=== PATIENT | male | born 1935 | race Caucasian/White ===

== ENCOUNTER 2016-05-15 17:19 | Emergency (ER) ==
--- NOTE | 2016-05-15 18:44 | PROVIDER DOCUMENTATION ---
HPI-General Adult - General Chief Complaint: Fall Stated Complaint: fall/generalized pain Time Seen by Provider: 05/15/16 17:40 Source: family Allergies/Adverse Reactions: Patient Allergies Allergy/AdvReac Type Severity Reaction Status Date / Time No Known Allergies Allergy Verified 02/08/16 18:08 Home Medications: Home Medication List Medication Instructions Recorded Confirmed Last Taken Type Amlodipine [Norvasc] 5 mg PO DAILY #0 tablet 01/12/13 05/15/16 05/15/16 08:00 Rx Aspirin 81 mg PO DAILY 06/03/15 05/15/16 05/15/16 08:00 History Donepezil [Aricept] 5 mg PO QHS 05/15/16 05/15/16 05/14/16 21:00 History Glimepiride [Amaryl] 2 mg PO DAILY 05/15/16 05/15/16 05/15/16 08:00 History Melatonin 3 mg PO DAILY 05/15/16 05/15/16 05/14/16 20:00 History - History of Present Illness -Gen Adult Nature of Presenting Problems: Fall at 11 am today. 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 Caught by , so slid down onto bottom against the couch. no obvious head hit. No LOC. Initially able to ambulate but now complains of pain diffusely and having difficulty ambulating independently Location of Pain/Injury: reports: generalized Quality of Pain: reports: aching Onset/Duration: reports: 4-6 hours ago Modifying Factors: improves with: movement (increases pain) Associated Symptoms: reports: denies symptoms Review of Systems - Adult - REVIEW OF SYSTEMS - ADULT Constitutional: reports: no symptoms reported Eyes: reports: no symptoms reported Ears, Nose, Mouth & Throat: reports: no symptoms reported Cardiovascular: reports: no symptoms reported Respiratory: reports: no symptoms reported Gastrointestinal: reports: no symptoms reported Genitourinary: reports: no symptoms reported Musculoskeletal: reports: back pain, muscle aches (pelvic pain), other Neurological: reports: other (dementia. oriented x1, at baseline mental status per granddaughter) Psychiatric: reports: other (dementia) Past History - Adult - PAST MEDICAL HISTORY-ADULT Review of Records: reports: Old Records Reviewed, Nursing Assessment Review, Medications Reviewed Major Childhood Illnesses: reports: denies history Cardiovascular: reports: HTN, hyperlipidemia, other (carotid vascular disease) Respiratory: reports: denies history Gastrointestinal: reports: denies history Obstetrical/Gynecological: reports: denies history Genitourinary: reports: denies history Musculoskeletal: reports: denies history Neurological: reports: denies history Endocrine/Immune: reports: Diabetes Diabetes Type: Type 2 Other Conditions: reports: denies history - PRIOR SURGERIES/PROCEDURES Surgical/Procedure History: reports: orthopedic (extremity) (wrist), back/neck, other (eye) - IMMUNIZATION STATUS Childhood Immunizations: See Nurse Assessment Flu Vaccine: See Nurse Assessment - FAMILY HISTORY Family History: reviewed, not pertinent Physical Exam-General - PHYSICAL EXAM-ADULT Initial Vital Signs Reviewed: Yes - CONSTITUTIONAL General Appearance: alert, no apparent distress - EYES Eyes: PERRL/EOMI - HEAD, EARS, NOSE, MOUTH & THROAT HENMT: normal ENT inspection, TMs normal, pharynx normal - NECK Neck: non-tender - RESPIRATORY Respiratory: chest non-tender, lungs clear, normal breath sounds - CARDIOVASCULAR Cardiovascular: normal peripheral pulses, regular rate, rhythm, no edema, no gallop, no JVD, no murmur - GASTROINTESTINAL (ABDOMEN) Abdominal Exam: normal bowel sounds, non tender, soft, no organomegaly - LYMPHATIC Lymphatic: no adenopathy - MUSCULOSKELETAL Back Exam: normal inspection, no CVA tenderness, no vertebral tenderness Extremity: normal range of motion, non-tender, normal inspection, no pedal edema , pelvis stable - SKIN Integumentary: normal color, normal turgor, warm/dry - NEUROLOGIC Neurologic: grossly normal, no motor/sensory deficits, other (able to stand with assist) - PSYCHIATRIC Psych/Mental Status: disoriented x 3, other (confused, does not remeber fall) Progress - PLAN OF CARE/RESULTS Progress/Plan/Lab Results: Orders Category Date Time Status Blood Glucose Finger Stick [FSBS/Accucheck Result] NOW Care 05/15/16 18:45 Active CHEST-1 VIEW [RAD] Stat Exams 05/15/16 17:55 Taken HEAD/C-SPINE W/O CONTRAST [CT] Stat Exams 05/15/16 17:55 Taken HIP W/PELVIS BILAT 2 VIEWS [RAD] Stat Exams 05/15/16 17:55 Taken LUMBAR SPINE 2-VIEWS [RAD] Stat Exams 05/15/16 19:32 Ordered Hydrocodone/APAP 5 mg/325 mg [[place]-5] Med 05/15/16 19:56 Discontinued 1 each PO NOW ONE Ketorolac [Toradol] Med 05/15/16 19:57 Stop Req 15 mg IV NOW ONE Ketorolac [Toradol] Med 05/15/16 20:02 Discontinued 30 mg IM NOW ONE Vital Signs Temp Pulse Resp BP Pulse Ox 05/15/16 19:38 97.0 F L 88 14 157/65 95 05/15/16 17:24 98.1 F 86 16 177/86 98 No Known Allergies Allergy (Verified 02/08/16 18:08) Amlodipine [Norvasc] 5 mg PO DAILY #0 tablet 01/12/13 Aspirin 81 mg PO DAILY 06/03/15 Donepezil [Aricept] 5 mg PO QHS 05/15/16 Glimepiride [Amaryl] 2 mg PO DAILY 05/15/16 Melatonin 3 mg PO DAILY 05/15/16 - XRAY 1 XRAY Study: Chest XRAY Interpretation: no fracture 2 XRAY Study: Pelvis, Hip (no fracture) 3 XRAY Study: Lumbar Spine (djd, , cannot completely r/o subtle compression fx but doubt) - CT/MRI 1 CT Study: Cervical Spine (DJD, no fracture, no intracranial acute process), Head Departure - Departure Time of Disposition Order: 20:07 DIAGNOSIS: Muscle strain, Low back strain Disposition: HOME 01 Certified Medical Emergency: Emergent Condition: Stable Additional Instructions: Use [place] that patient has or plain tylenol for discomfort. Standing and walking only with assistance until better . Try warm pack or ice to help discomfort. Follow up with your regular doctor if symptoms persist ED Follow Up Instructions: You have been treated by a care provider in the Emergency Department. These instructions are being provided to you so you can have an understanding of how to care for yourself upon discharge. Upon discharge from the Emergency Department, you are responsible for making arrangements for follow-up care by a physician of your choice. Take all prescribed medications as directed. Return to the Emergency Department immediately for any new or worsening symptoms. You may call the Physician Referral phone number at [phone] to obtain a list of Physicians who are taking new patients. Referrals: Jeremy Huertas MD [Primary Care Provider] -
[2016-05-15] MEDS ORDERED: NORCO-5 PO ONE (19:56)
[2016-05-15] MEDS ORDERED: TORADOL IV ONE (19:57)
[2016-05-15] MEDS ORDERED: TORADOL IM ONE (20:02)
--- NOTE | 2016-05-15 20:56 | Diag Imaging Result Document ---
PROCEDURE NAME: HEAD/C-SPINE W/O CONTRAST - 05/15/2016 CT HEAD AND C-SPINE WITHOUT CONTRAST.: COMPARISON: CT head dated 01/11/2013. FINDINGS: HEAD: There is patchy low attenuation in the periventricular and subcortical white matter suggesting at least moderate microangiopathy that appears to be somewhat worse than the previous study. There is also mild focal encephalomalacia involving the left parietal lobe near the cranial vault posteriorly that was not present previously. However, there is no definite acute infarct given the limited sensitivity of CT versus MRI. There is no discrete intracranial mass, mass effect, or intracranial hemorrhage. There is chronic appearing sphenoid and left maxillary sinus mucosal disease. Surrounding soft tissues are grossly unremarkable, otherwise. Calvaria is intact. C-SPINE: There has been prior anterior cervical fusion at C5-6. There is extensive facet degenerative arthropathy at multiple cervical levels. There is somewhat milder degenerative disk disease at multiple levels. This is causing some degree of central canal and neural foraminal narrowing at multiple levels that appears chronic. There is no evidence of fracture, subluxation, or intrinsic osseous lesion, otherwise. There are emphysematous changes at the lung apices as well as scarring. Surrounding soft tissues are essentially unremarkable, otherwise. IMPRESSION: 1. Chronic appearing intracranial changes as described but no evidence of acute intracranial pathology. 2. Extensive facet degenerative arthropathy and somewhat milder acute degenerative disk disease as described but no evidence of fracture or other definite acute C-spine injury. [facility]
[2016-05-15 21:35] VITALS: BP 171/72
--- NOTE | 2016-05-15 22:35 | Diag Imaging Result Document ---
PROCEDURE NAME: CHEST-1 VIEW - 05/15/2016 SINGLE FRONTAL RADIOGRAPH OF THE CHEST: COMPARISON: 08/17/2014. FINDINGS: There is minimal chronic-appearing interstitial thickening bilaterally at the periphery of the lungs that is stable. The lungs are clear otherwise. There is no definite pleural fluid collection. Cardiac silhouette and central vasculature are unremarkable. There is no definite pneumothorax. IMPRESSION: Stable chest with no definite acute pathology.
--- NOTE | 2016-05-15 22:54 | Diag Imaging Result Document ---
PROCEDURE NAME: LUMBAR SPINE 2-VIEWS - 05/15/2016 PLAIN RADIOGRAPHS LUMBAR SPINE 2 VIEWS: COMPARISON: None available. FINDINGS: There is extensive multilevel degenerative disk disease with endplate marginal osteophyte formation. There is loss of disk space height at L4-5 and L5-S1. There is no evidence of fracture, subluxation, or intrinsic osseous lesion, otherwise. Surrounding soft tissues are grossly unremarkable. IMPRESSION: Multilevel degenerative change. No definite acute pathology.
--- NOTE | 2016-05-15 22:58 | Diag Imaging Result Document ---
PROCEDURE NAME: HIP W/PELVIS BILAT 2 VIEWS - 05/15/2016 PLAIN RADIOGRAPH OF THE PELVIS AND BILATERAL HIPS FOUR VIEWS: COMPARISON: 02/08/2016. FINDINGS: There are stable degenerative changes at both acetabular roofs and stable lumbar spine degenerative changes. There is no definite fracture, dislocation, or intrinsic osseous lesion, otherwise. IMPRESSION: Stable degenerative changes. No definite acute osseous abnormality.
== END 2016-05-15 22:00 | disposition home or self-care (01) ==
LOC: EDBD → ED 17:19
DX: S39.012A Strain of muscle, fascia and tendon of lower back, initial encounter (principal); M54.9 Dorsalgia, unspecified; M79.1 Myalgia; R10.2 Pelvic and perineal pain; R41.0 Disorientation, unspecified; M50.30 Other cervical disc degeneration, unspecified cervical region; I10 Essential (primary) hypertension; E78.5 Hyperlipidemia, unspecified; Z79.899 Other long term (current) drug therapy; E11.9 Type 2 diabetes mellitus without complications; F03.90 Unspecified dementia, unspecified severity, without behavioral disturbance, psychotic disturbance, mood disturbance, and anxiety; Z79.82 Long term (current) use of aspirin; W18.39XA Other fall on same level, initial encounter
CPT/HCPCS: 70450; 71010; 72100; 72125; 73521; 82948; J1885

== ENCOUNTER 2018-06-27 06:43 | Inpatient (IN) ==
[2018-06-27] MEDS ORDERED: ZOFRAN ONE (07:19)
[2018-06-27] MEDS ORDERED: DECADRON ONE (07:19)
[2018-06-27] MEDS ORDERED: DIPRIVAN 1% ONE (07:19)
[2018-06-27] MEDS ORDERED: XYLOCAINE-MPF 2% ONE (07:22)
[2018-06-27] MEDS ORDERED: KEFZOL 1 GM/D5W 1 GM/50 ML IVPB ONE (07:24)
[2018-06-27] MEDS ORDERED: LR 1,000 ML ONE (07:24)
[2018-06-27] MEDS ORDERED: LABETALOL IV PRN (07:55)
[2018-06-27] MEDS ORDERED: FENTANYL ONE (08:41)
[2018-06-27] MEDS ORDERED: NS 1,000 ML ONE (09:34)
--- NOTE | 2018-06-27 09:34 | OPERATIVE NOTE ---
PROCEDURE DATE: 06/27/2018 PROCEDURE PERFORMED: Right transmetatarsal amputation. SURGEON: Carlos A Carvalho MD. DANCE ARTIST: RUTH Pena PREOPERATIVE DIAGNOSIS: Gangrene of the toes of the right foot. POSTOPERATIVE DIAGNOSIS: Gangrene of the toes of the right foot. DESCRIPTION OF PROCEDURE: After satisfactory general anesthesia was achieved, the right foot was prepped and draped in a sterile fashion. We made a [place] nikos on the forefoot. We carried our incision straight through the skin through the subcutaneous tissue through the tendinous tissue all the way to the metatarsals. After raising the periosteum on the metatarsals, I then used the oscillating saw to transect each metatarsal. We divided the soft tissue and handed off the toes. There was pulsatile bleeding. One of the digital vessels was clamped, and suture ligated with a 3-0 Polysorb suture ligature. The tendons that were exposed were pulled and transected more proximally. We then copiously irrigated the wound. Hemostasis was satisfactory. The tissue appeared to fold over nicely, and the skin would approximate without undue tension. We then used 2-0 nylon simple stitches to approximate the major portion of the flaps, and we then used 4-0 nylon in between them to fine tune the skin approximation. Xeroform, sterile 4 x 4s, and a Kerlix was applied. He tolerated it well. He was sent to the recovery room in satisfactory condition. cc: Carlos A Carvalho MD
[2018-06-27] MEDS ORDERED: DILAUDID IV PRN (10:18)
[2018-06-27] MEDS ORDERED: ZOFRAN IV PRN (10:18)
[2018-06-27] MEDS ORDERED: NS 1,000 ML IV SCH (10:18)
[2018-06-27 11:42] LABS: HEMATOCRIT 36.3 % (42.0-52.0); HEMOGLOBIN 11.8 g/dL (14.0-18.0); MCH 29.7 PG (27-31); MCHC 32.5 g/dL (33-37); MCV 91.4 FL (81-99); MPV 8.8 FL (7.4-10.4); RBC 3.97 XMIL (4.7-6.1); RDW 12.9 % (11.5-14.5); WBC 11.62 X1000 (4.8-10.8)
[2018-06-27 12:00] LABS: AGAP 9; BUN 17 mg/dL (8-22); CALCIUM 8.3 mg/dL (8.8-10.2); CHLORIDE 106 mmol/L (98-107); COSMO 288; CREATININE 0.8 mg/dL (0.7-1.2); ESTIMATED GFR > 60; GLUCOSE 225 mg/dL (70-104); POTASSIUM 4.2 mmol/L (3.5-5.1); SODIUM 140 mmol/L (136-145); TCO2 25 mmol/L (25-35)
[2018-06-27] MEDS: HUMULIN R SUBQ SCH ×2 (16:24→21:53)
[2018-06-27] MEDS: KEFZOL 1 GM in NS 50 ML IV SCH (16:25)
--- NOTE | 2018-06-27 17:18 | GENERAL SURGERY PROGRESS NOTE ---
DATE: 06/27/2018 SUBJECTIVE: Mr. Palomares is doing generally well. He has some blood on his bandage. This is not increasing. He is eating satisfactorily. We are monitoring his blood sugars and put him on a sliding scale. We will inspect his wound tomorrow. I discussed rehab with his family and they were reflecting about that. cc: Carlos A Carvalho MD
[2018-06-27] MEDS: ARICEPT PO SCH (21:48)
[2018-06-27] MEDS: ZOCOR PO SCH (21:48)
[2018-06-27] MEDS: NORCO-10 PO PRN (21:56)
[2018-06-28] MEDS: KEFZOL 1 GM in NS 50 ML IV SCH ×3 (00:39→17:51)
[2018-06-28] MEDS: MELATONIN PO SCH ×2 (03:04→21:41)
[2018-06-28 06:32] LABS: BASO# 0.01 X1000 (0.0-0.2); BASO% 0.1 % (0.0-0.8); EOS# 0.03 X1000 (0.0-0.7); EOS% 0.2 % (0.0-10.0); HEMATOCRIT 33.1 % (42.0-52.0); HEMOGLOBIN 10.8 g/dL (14.0-18.0); IMM GRAN# 0.05 X1000 (0.0-0.04); IMM GRAN% 0.3 % (0.0-0.5); LYMPH% 8.4 % (20.5-51.1); MCH 30.1 PG (27-31); MCHC 32.6 g/dL (33-37); MCV 92.2 FL (81-99); MONO% 9.1 % (1.7-9.3); MPV 9.1 FL (7.4-10.4); NEUT# 11.71 X1000 (1.4-6.5); NEUT% 81.9 % (42.2-75.2); PLT 259 X1000 (130-400); RBC 3.59 XMIL (4.7-6.1)
[2018-06-28 07:02] LABS: AGAP 9; BUN 21 mg/dL (8-22); CHLORIDE 109 mmol/L (98-107); COSMO 292; CREATININE 0.9 mg/dL (0.7-1.2); ESTIMATED GFR > 60; GLUCOSE 142 mg/dL (70-104); SODIUM 144 mmol/L (136-145); TCO2 26 mmol/L (25-35)
[2018-06-28] MEDS: HUMULIN R SUBQ SCH ×4 (07:04→21:42)
[2018-06-28] MEDS: NORVASC PO SCH (08:14)
[2018-06-28] MEDS: ASPIRIN EC PO SCH (08:15)
[2018-06-28] MEDS ORDERED: MELATONIN PO SCH (09:00)
--- NOTE | 2018-06-28 12:15 | GENERAL SURGERY PROGRESS NOTE ---
DATE: 06/28/2018 SUBJECTIVE: Mr. Palomares is 1 day after transmetatarsal amputation of the right foot. His wound was inspected; it looks good. No active bleeding. He is afebrile. OBJECTIVE: Vital Signs: Heart rate 83, blood pressure 167/80. Sugars have been in the mid to late 100s. Today, his white count is 14,000, hemoglobin 10.9, hematocrit 33. PLAN: The plan is to work on getting him transferred to rehabilitation, possibly tomorrow. I am pleased with his progress. cc: Carlos A Carvalho MD
[2018-06-28] MEDS: NORCO-10 PO PRN (18:31)
[2018-06-28 20:20] LABS: URINE SOURCE CLEAN CATCH
[2018-06-28 20:27] LABS: BILIRUBIN URINE NEGATIVE (NEGATIVE); BLOOD URINE MODERATE (NEGATIVE); COLOR YELLOW; GLUCOSE URINE 100 mg/dL (NEGATIVE); KETONE URINE NEGATIVE (NEGATIVE); LEUKOCYTES URINE NEGATIVE (NEGATIVE); NITRITE URINE NEGATIVE (NEGATIVE); PH URINE 6.5; PROTEIN URINE 100 mg/dL (NEGATIVE); SP GRAVITY URINE 1.017; TURBIDITY URINE CLEAR (CLEAR); UROBILINOGEN URINE 6 mg/dL (NORMAL)
[2018-06-28 20:28] LABS: UR EPITHELIAL CELLS <10 /HPF (<10); URINE BACTERIA NEGATIVE /HPF; URINE RBC TNTC /HPF (<10); URINE WBC <10 /HPF (<10)
[2018-06-28] MEDS: ARICEPT PO SCH (21:41)
[2018-06-28] MEDS: ZOCOR PO SCH (21:41)
[2018-06-29] MEDS: KEFZOL 1 GM in NS 50 ML IV SCH ×3 (00:06→17:00)
[2018-06-29] MEDS: HUMULIN R SUBQ SCH ×4 (07:43→21:40)
[2018-06-29] MEDS: NORVASC PO SCH (08:48)
[2018-06-29] MEDS: ASPIRIN EC PO SCH (08:48)
--- NOTE | 2018-06-29 09:12 | Diag Imaging Result Doc PS360 ---
EXAM: CHEST-PORTABLE HISTORY: rehab placement TECHNIQUE: Portable chest single view COMPARISON: 05/22/2016 FINDINGS: The lungs are well expanded. The heart is borderline mildly prominent. The vessels are not distended. There are no infiltrates. No effusion identified. There has been surgery to the lower neck. IMPRESSION: No acute abnormality. Electronically signed by Raffaele Calhoun 06/29/2018 9:09 AM
--- NOTE | 2018-06-29 10:42 | GENERAL SURGERY PROGRESS NOTE ---
DATE: 06/29/2018 SUBJECTIVE: Mr. Palomares is now 2 days after his transmetatarsal amputation. OBJECTIVE: He is awake and alert. He is afebrile. Hemodynamics are good. His sugars have been primarily less than 200. His wound was inspected and is healing satisfactorily. PLAN: The plan will be to transfer him to rehab tomorrow. PT is starting to work with him to get him up, which he is tolerating okay. We will check a CBC again tomorrow. cc: Carlos A Carvalho MD
[2018-06-29] MEDS: ARICEPT PO SCH ×2 (19:54→23:04)
[2018-06-29] MEDS: MELATONIN PO SCH ×2 (19:54→21:40)
[2018-06-29] MEDS: NORCO-10 PO PRN (19:54)
[2018-06-29] MEDS: ZOCOR PO SCH ×2 (19:54→23:04)
[2018-06-30] MEDS: KEFZOL 1 GM in NS 50 ML IV SCH ×2 (00:49→12:06)
[2018-06-30] MEDS: HUMULIN R SUBQ SCH ×2 (06:42→12:08)
[2018-06-30 07:04] LABS: BASO# 0.02 X1000 (0.0-0.2); BASO% 0.2 % (0.0-0.8); EOS# 0.41 X1000 (0.0-0.7); EOS% 4.2 % (0.0-10.0); HEMOGLOBIN 11.6 g/dL (14.0-18.0); IMM GRAN# 0.04 X1000 (0.0-0.04); IMM GRAN% 0.4 % (0.0-0.5); LYMPH# 1.09 X1000 (1.2-3.4); LYMPH% 11.3 % (20.5-51.1); MCH 29.8 PG (27-31); MCHC 32.2 g/dL (33-37); MCV 92.5 FL (81-99); MONO# 1.07 X1000 (0.11-0.59); MONO% 11.1 % (1.7-9.3); NEUT# 7.04 X1000 (1.4-6.5); NEUT% 72.8 % (42.2-75.2); PLT 240 X1000 (130-400); RBC 3.89 XMIL (4.7-6.1); RDW 13.2 % (11.5-14.5); WBC 9.67 X1000 (4.8-10.8)
--- NOTE | 2018-06-30 11:53 | DISCHARGE SUMMARY ---
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 PRIMARY PROCEDURE: A transmetatarsal amputation. This is an 83-year-old gentleman whom we had revascularized with atherectomy. He appeared to have adequate flow to tolerate a transmetatarsal amputation. He was admitted on the and underwent the above procedure. Postoperatively, he did generally well. We did watch his blood sugars and they were reasonably controlled at less than 200. By 06/30/2018, his wound was doing satisfactorily. He had been on IV Kefzol in the hospital. Physical Therapy had gotten him up to stand up. PLAN: The plan will be to discharge him to rehabilitation, where he will undergo physical therapy and be assisted with ambulation. He will return to see me in the office for wound evaluation when he leaves rehabilitation. He will resume his usual medications. cc: Carlos A Carvalho MD
[2018-06-30] MEDS: NORVASC PO SCH (12:06)
[2018-06-30] MEDS: ASPIRIN EC PO SCH (12:06)
[2018-06-30 12:09] VITALS: BP 171/62
--- NOTE | 2018-06-30 14:28 | GENERAL SURGERY PROGRESS NOTE ---
DATE: 06/30/2018 Mr. Palomares's transmetatarsal amputation site looks good. His white count is normal. His sugars are less than 200. We will transfer him to [facility] today. He will return to see me in the office when he leaves [facility]. He can get up and ambulate. cc: Carlos A Carvalho MD
== END 2018-06-30 16:09 | DRG 240 ==
LOC: SURHOLD 06:43 → 4N 09:32
PROVIDERS: ADMIT Surgery; ATTEND Surgery
CPT/HCPCS: 71010; 71045; 80048; 81001; 82948; 85025; 85027; 88305; 94799; 97110; 97116; 97162; 97530; A9270; J0690; J1100; J2405; J3010; J7030; J7120; XXXXX

== ENCOUNTER 2018-07-14 08:12 | Inpatient (IN) ==
[2018-07-14] MEDS ORDERED: NS 1,000 ML IV ONE (08:23)
[2018-07-14] MEDS ORDERED: FLAGYL 500 MG/NS 500 MG/100 ML IVPB IV ONE (08:23)
[2018-07-14] MEDS ORDERED: LEVAQUIN 500 MG/D5W 500 MG/100 ML IVPB IV ONE (08:23)
--- NOTE | 2018-07-14 08:49 | PROVIDER DOCUMENTATION ---
HPI-Abdominal Pain/GI Problem - General Stated Complaint: ABDOMINAL PAIN Time Seen by Provider: 07/14/18 08:19 Allergies/Adverse Reactions: Patient Allergies Allergy/AdvReac Type Severity Reaction Status Date / Time No Known Allergies Allergy Verified 07/14/18 08:57 Home Medications: Home Medication List Medication Instructions Recorded Confirmed Last Taken Type Amlodipine [Norvasc] 5 mg PO DAILY #0 tablet 01/12/13 06/27/18 06/26/18 08:00 Rx Aspirin 81 mg PO DAILY 06/03/15 06/27/18 06/26/18 08:00 History Donepezil [Aricept] 5 mg PO QHS 05/15/16 06/27/18 06/26/18 20:00 History Melatonin 3 mg PO DAILY 05/15/16 06/27/18 06/26/18 20:00 History SIMVAstatin [Zocor] 20 mg PO QHS 06/09/18 06/27/18 06/26/18 20:00 History Hydrocodone/APAP 10 mg/325 mg 1 ea PO Q4H PRN PRN #10 tab 06/30/18 Unknown Rx [Pavo-10] - History of Present Illness-ABD Nature of Presenting Problems: pt is historically diabetic w/ recent transmet amputation R foot ([place]) following revascularization directed by CTA w/ runoff. that study showed incidental R renal mass. 2 days ago he had A&P CT scan for pain which revealed sigmoid diverticulitis w/ abscess but no free air, as well as stercoral proctitis. he is referred back from rehab facility for tx of above (Roosevelt Huertas, who used to be his PCP but he is now under care of different provider). per family report BGL running high since recent problems, after his (?) metformin had been previously d/c'd. he is on s/s at rehab. Review of Systems - Adult - REVIEW OF SYSTEMS - ADULT Constitutional: reports: fever (99.4 last night) Eyes: reports: no symptoms reported Ears, Nose, Mouth & Throat: reports: no symptoms reported Cardiovascular: reports: poor circulation, other (recent transmet R foot) Respiratory: reports: no symptoms reported Gastrointestinal: reports: see HPI, abdominal pain Genitourinary: reports: no symptoms reported Musculoskeletal: reports: no symptoms reported Integumentary: reports: no symptoms reported Neurological: reports: other (dementia) Psychiatric: reports: no symptoms reported Endocrine: reports: no symptoms reported Hematologic/Lymphatic: reports: no symptoms reported Allergic/Immunologic: reports: no symptoms reported All Other Systems: Reviewed and Negative Past History - Adult - PAST MEDICAL HISTORY-ADULT Review of Records: reports: Old Records Reviewed Major Childhood Illnesses: reports: denies history Cardiovascular: reports: HTN, hyperlipidemia, other (carotid vascular disease) Respiratory: reports: denies history Gastrointestinal: reports: denies history Obstetrical/Gynecological: reports: denies history Genitourinary: reports: denies history Musculoskeletal: reports: denies history Neurological: reports: denies history Endocrine/Immune: reports: Diabetes Other Conditions: reports: denies history - PRIOR SURGERIES/PROCEDURES Surgical/Procedure History: reports: orthopedic (extremity) (wrist), back/neck, other (eye) - IMMUNIZATION STATUS Childhood Immunizations: See Nurse Assessment Flu Vaccine: See Nurse Assessment - FAMILY HISTORY Family History: reviewed, not pertinent Physical Exam-General - PHYSICAL EXAM-ADULT Initial Vital Signs Reviewed: Yes - CONSTITUTIONAL General Appearance: mild distress, slow to respond - EYES Eyes: PERRL/EOMI - HEAD, EARS, NOSE, MOUTH & THROAT HENMT: normal ENT inspection - NECK Neck: supple - RESPIRATORY Respiratory: lungs clear - CARDIOVASCULAR Cardiovascular: regular rate, rhythm - GASTROINTESTINAL (ABDOMEN) Abdominal Exam: abnormal bowel sounds, distended, guarding, tenderness. negative: rigid, rebound, McBurney's point tenderness - GENITOURINARY Male Genitalia: normal genitalia Rectal Exam: normal rectal tone, other (no impaction). negative: hemorrhoids - LYMPHATIC Lymphatic: no adenopathy - MUSCULOSKELETAL Back Exam: normal inspection, no CVA tenderness Extremity: other (wound of R foot healing well) Peripheral Pulses: radial (R): 2+, radial (L): 2+ - SKIN Integumentary: warm/dry. 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, grossly normal - PSYCHIATRIC Psych/Mental Status: normal mood/affect Progress - PLAN OF CARE/RESULTS Progress/Plan/Lab Results: Orders Category Date Time Status CBC WITH DIFF [HEME] Stat Lab 07/14/18 08:23 Uncollected COMPREHENSIVE METABOLIC PANEL [CHEM] Stat Lab 07/14/18 08:23 Uncollected URINALYSIS W/POSS RFLX CULT [URINALYSIS] Stat Lab 07/14/18 08:23 Uncollected 0.9% Sodium Chloride Inj [Ns] 1,000 ml Med 07/14/18 08:23 Active IV 150 mls/hr Levofloxacin 500 mg/D5w [Levaquin 500 mg/D5w] Med 07/14/18 08:23 Active 500 mg in 100 ml IV NOW Metronidazole 500 mg/Ns [Flagyl 500 mg/Ns] Med 07/14/18 08:23 Active 500 mg in 100 ml IV NOW Result Diagrams: 07/14/18 08:45 07/14/18 08:45 - REASSESSMENT Reassessment #2 Time Reassessed: 12:22 Status: unchanged (hospitalist paged for admission) - CONSULTS/PCP/HOSPITALIST Notification #1 *Consult/PCP/Hospitalist*: Giovanna Consult Disposition: Admit Departure - Departure Date of Disposition Decision: 07/14/18 Time of Disposition Decision: 12:29 DIAGNOSIS: Diverticulitis large intestine Disposition: ADMITTED INPATIENT 09 Certified Medical Emergency: Emergent Condition: Stable Referrals and Follow-Ups: Jeremy Huertas MD [Primary Care Provider] - - Critical Care Note This patient required my direct & personal management of CC.: No Attestation - Physician/ ALISTAIR Attestation The physician spent face to face time with patient:: Yes Advanced Practice Provider documentation review:: Supervising physician onsite and consulted in the evaluation and care of this patient. The physician did have a face to face encounter with the patient.
[2018-07-14 09:25] LABS: AGAP 13; ALB/GLOB RATIO 0.8; ALBUMIN 2.5 g/dL (3.5-5.0); ALKALINE PHOSPHATASE 64 U/L (32-122); BUN 27 mg/dL (8-22); CALCIUM 7.3 mg/dL (8.8-10.2); CHLORIDE 98 mmol/L (98-107); COSMO 279; ESTIMATED GFR > 60; GLUCOSE 232 mg/dL (70-104); GOT 8 U/L (10-34); GPT 9 U/L (10-44); POTASSIUM 4.5 mmol/L (3.5-5.1); SODIUM 133 mmol/L (136-145); TCO2 22 mmol/L (25-35); TOTAL BILIRUBIN 0.55 mg/dL (0.20-1.00); TOTAL PROTEIN 5.7 g/dL (6.3-8.3)
[2018-07-14 10:17] LABS: BASO# 0.02 X1000 (0.0-0.2); BASO% 0.2 % (0.0-0.8); EOS# 0.03 X1000 (0.0-0.7); EOS% 0.2 % (0.0-10.0); HEMATOCRIT 35.2 % (42.0-52.0); HEMOGLOBIN 11.4 g/dL (14.0-18.0); IMM GRAN# 0.14 X1000 (0.0-0.04); IMM GRAN% 1.1 % (0.0-0.5); LYMPH% 6.4 % (20.5-51.1); MCH 29.4 PG (27-31); MCHC 32.4 g/dL (33-37); MCV 90.7 FL (81-99); MONO# 2.19 X1000 (0.11-0.59); MONO% 17.6 % (1.7-9.3); MPV 9.3 FL (7.4-10.4); NEUT# 9.27 X1000 (1.4-6.5); NEUT% 74.5 % (42.2-75.2); PLT 259 X1000 (130-400); RBC 3.88 XMIL (4.7-6.1); RDW 13.9 % (11.5-14.5); WBC 12.45 X1000 (4.8-10.8)
[2018-07-14 11:06] LABS: BANDS 4 % (0-1); LYMPHS 7 % (21-51); MONO 18 % (1-9); SEGS 71 % (42-75)
[2018-07-14 12:02] LABS: URINE SOURCE CLEAN CATCH
[2018-07-14 13:53] LABS: TSH 1.61 uIUmL (0.27-4.20)
[2018-07-14 14:12] LABS: BILIRUBIN URINE SMALL (NEGATIVE); BLOOD URINE MODERATE (NEGATIVE); COLOR YELLOW; GLUCOSE URINE TRACE mg/dL (NEGATIVE); KETONE URINE 20 mg/dL (NEGATIVE); LEUKOCYTES URINE TRACE (NEGATIVE); NITRITE URINE NEGATIVE (NEGATIVE); PH URINE 5.5; PROTEIN URINE 70 mg/dL (NEGATIVE); SP GRAVITY URINE 1.024; TURBIDITY URINE CLEAR (CLEAR); UR EPITHELIAL CELLS <10 /HPF (<10); URINE BACTERIA NEGATIVE /HPF; URINE WBC <10 /HPF (<10); UROBILINOGEN URINE 3 mg/dL (NORMAL)
[2018-07-14 14:13] LABS: URINE YEAST NONE SEEN
[2018-07-14] MEDS: DULCOLAX PR SCH ×2 (14:15→21:00)
--- NOTE | 2018-07-14 15:31 | HISTORY AND PHYSICAL ---
CHIEF COMPLAINT: Abdominal pain. HISTORY OF PRESENT ILLNESS: This is an 83-year-old gentleman with a history of diabetes mellitus, hypertension and peripheral artery disease. He presents to the emergency room from rehab complaining of abdominal pain. At the time of my interview, the patient states he does not feel like participating, but his and daughter are present, and they are filling in much of the information. 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 He did well. He was discharged to rehab on 06/30. The family states that he began to complain of weakness, became a little confused. Urinalysis was checked, and he was found to have Pseudomonas. They state he did receive antibiotics although during this time, he began to have anorexia, and he has slowly stopped eating. Over the last week, they have had a lot of difficulty even getting him to take in any liquids. He began to complain of abdominal pain over the last 2 to 3 days. They realized he had not had a bowel movement in quite some time. In rehab, a CT of the abdomen and pelvis without contrast was performed on 07/12, as ordered per the facility director. It did reveal constipation with sigmoid diverticulitis and probable proctitis. The stated that results were called to the facility yesterday on the . They were unable to directly admit the patient. Therefore, the patient's results were called to the facility, and to their understanding the physician tried to directly admit the patient last night but was unsuccessful so he was sent to the ER this morning. The patient states that he has had abdominal pain for "a really long time". He describes it as a crampy type pain. His abdomen is tender to palpation and it is distended. He does have bowel sounds that are hypoactive. IV hydration was started in the emergency room. He was given Flagyl and Levaquin, and he is being admitted for further evaluation and treatment. PAST MEDICAL HISTORY: Diabetes mellitus, hypertension, peripheral artery disease, carotid stenosis, and status post carotid endarterectomy. PAST SURGICAL HISTORY: Carotid endarterectomy and right transmetatarsal amputation. SOCIAL HISTORY: He is in Rehab presently. He normally lives at home with his and daughter with no alcohol for the past 2 years. Tobacco or illicit drug use. ALLERGIES: No known drug allergies. HOME MEDICATIONS: A list will be obtained by the nursing staff and once verified will review and restart as appropriate. REVIEW OF SYSTEMS: Discussed with the patient with pertinent positives stated in the HPI. He denied any syncope, dizziness, chest pain, palpitations, any shortness of breath, any vomiting, diarrhea, any bloody stools, any hematuria, dysuria, frequency, or urgency. PHYSICAL EXAMINATION: GENERAL: This is an 83-year-old gentleman who is lying on the stretcher in the emergency room in no distress. VITAL SIGNS: Blood pressure 146/76 with a heart rate of 103, respirations are 23 to 24, temperature is 98 degrees with O2 saturation 94 to 97 percent on room air. EYES: Pupils are equal, round, and reactive to light. EOMs are intact. Sclerae anicteric. HEENT: Head is normocephalic, atraumatic. Mucous membranes are dry. NECK: Supple. Trachea midline. CARDIOVASCULAR: Regular rate and rhythm. S1 and S2 appreciated. Bilateral calves are nontender to palpation. PULMONARY: Breath sounds are clear. No increased work of breathing noted. Chest rises and falls symmetric with respiration. Chest wall is nontender to palpation GI: Abdomen is distended. He is tender to palpation with hypoactive bowel sounds throughout. NEUROLOGIC: He is drowsy. He is oriented to person and family. He knows he is at the hospital. SKIN: Warm and dry with poor turgor. LABORATORY: WBC is 12.4 with hemoglobin 11.4, hematocrit 35.2, and platelets of 259,000. Sodium 133, potassium 4.5, BUN 27, creatinine 1 with a glucose of 232. Urinalysis is pending. ASSESSMENT AND PLAN: 1. Sigmoid diverticulitis with probable proctitis. The patient was given Flagyl and Levaquin in the emergency room. We will continue with sips of liquids and will consult GI. 2. Constipation. Give Dulcolax suppositories q.12 hours x4 and reassess. 3. Diabetes mellitus. She will be placed on pattern blood glucose with sliding scale insulin. 4. Hypertension. We will monitor vital signs. Continue and will identify his home medications. We will restart if appropriate. 5. Leukocytosis. Causes could be multifactorial. He does have diverticulitis. He has had a recent Pseudomonas UTI on 07/03. He has also had recent transmetatarsal amputation on 06/27. We will get blood cultures and urine culture. We will continue Levaquin, and any further antibiotics will be culture driven. 6. History of peripheral artery disease. Aware. Repeat CBC, CMP and magnesium in the morning. Patient seen and examined by me face to face, all the laboratory, vitals signs and images were reviewed, he has a history of dementia, his abdomen is distended, and painful to palpation, signs of Diverticulitis and proctitis, he will receive antibiotics, IV fluids, GI consult, family at the bedside and we discussed his resuscitation status, he will be DNR, I agree with the [employer] CLERK's assessment and plan, Chun Cabral MD. Further treatments pending hospital course. Dictated by BRIE Juarez for Chun Hernandez MD cc: BRIE Juarez MD MTDD
[2018-07-14] MEDS ORDERED: NS 1,000 ML IV SCH (16:30)
[2018-07-14] MEDS: FLAGYL 500 MG/NS 500 MG/100 ML IVPB IV SCH ×2 (16:30→21:48)
[2018-07-14] MEDS: HUMALOG SUBQ SCH ×2 (18:30→21:00)
[2018-07-15 01:45] LABS: INR 1.67
[2018-07-15 01:46] LABS: PTT 37.3 Seconds (22.3-41.8)
[2018-07-15] MEDS: FLAGYL 500 MG/NS 500 MG/100 ML IVPB IV SCH ×4 (02:23→21:55)
[2018-07-15 03:12] LABS: URINE SOURCE CATH
[2018-07-15 03:15] LABS: UR EPITHELIAL CELLS <10 /HPF (<10); URINE BACTERIA NEGATIVE /HPF; URINE WBC <10 /HPF (<10)
[2018-07-15 03:20] LABS: BILIRUBIN URINE NEGATIVE (NEGATIVE); BLOOD URINE MODERATE (NEGATIVE); COLOR ORANGE; GLUCOSE URINE TRACE mg/dL (NEGATIVE); KETONE URINE TRACE mg/dL (NEGATIVE); LEUKOCYTES URINE NEGATIVE (NEGATIVE); NITRITE URINE NEGATIVE (NEGATIVE); PH URINE 5.5; PROTEIN URINE 50 mg/dL (NEGATIVE); SP GRAVITY URINE 1.022; TURBIDITY URINE CLEAR (CLEAR); UROBILINOGEN URINE NORMAL (NORMAL)
[2018-07-15] MEDS ORDERED: CARDIZEM IV ONE (05:27)
[2018-07-15] MEDS ORDERED: CARDIZEM 125 MG in NS 100 ML IV SCH (05:30)
[2018-07-15 05:43] LABS: INR 1.67
[2018-07-15 05:50] LABS: BASO# 0.02 X1000 (0.0-0.2); BASO% 0.2 % (0.0-0.8); EOS# 0.01 X1000 (0.0-0.7); EOS% 0.1 % (0.0-10.0); HEMATOCRIT 35.5 % (42.0-52.0); HEMOGLOBIN 11.6 g/dL (14.0-18.0); IMM GRAN# 0.18 X1000 (0.0-0.04); IMM GRAN% 1.8 % (0.0-0.5); LYMPH# 0.93 X1000 (1.2-3.4); LYMPH% 9.3 % (20.5-51.1); MCH 29.9 PG (27-31); MCHC 32.7 g/dL (33-37); MCV 91.5 FL (81-99); MONO# 1.85 X1000 (0.11-0.59); MONO% 18.5 % (1.7-9.3); NEUT# 7.03 X1000 (1.4-6.5); NEUT% 70.1 % (42.2-75.2); PLT 236 X1000 (130-400); RBC 3.88 XMIL (4.7-6.1); RDW 14.1 % (11.5-14.5); WBC 10.02 X1000 (4.8-10.8)
[2018-07-15 06:00] LABS: AGAP 13; ALB/GLOB RATIO 0.6; ALBUMIN 2.1 g/dL (3.5-5.0); ALKALINE PHOSPHATASE 65 U/L (32-122); BUN 27 mg/dL (8-22); CALCIUM 7.4 mg/dL (8.8-10.2); CHLORIDE 103 mmol/L (98-107); COSMO 285; CREATININE 1.1 mg/dL (0.7-1.2); ESTIMATED GFR > 60; GLUCOSE 166 mg/dL (70-104); GOT 8 U/L (10-34); GPT 7 U/L (10-44); MAGNESIUM 2.5 mg/dL (1.5-2.7); POTASSIUM 4.2 mmol/L (3.5-5.1); SODIUM 138 mmol/L (136-145); TCO2 22 mmol/L (25-35); TOTAL BILIRUBIN 0.55 mg/dL (0.20-1.00); TOTAL PROTEIN 5.4 g/dL (6.3-8.3)
[2018-07-15] MEDS: HUMALOG SUBQ SCH ×4 (06:50→21:56)
--- NOTE | 2018-07-15 07:13 | Diag Imaging Result Doc PS360 ---
EXAM: CHEST-1 VIEW 07/15/2018 HISTORY: sepsis protocol TECHNIQUE: AP portable at 0120 COMMENT: The inspiration is less optimal than on 06/29/2018. Compared to the previous study, otherwise, there has been no significant change. IMPRESSION: Stable chest. Electronically signed by Duane Benites 07/15/2018 7:11 AM
--- NOTE | 2018-07-15 07:22 | EKG Report ---
Test Performed on : 07/15/2018 04:33:13 AM Test Reason : SR to AFib Blood Pressure : / mmHG Vent. Rate : 126 BPM Atrial Rate : 136 BPM P-R Int : 000 ms QRS Dur : 090 ms QT Int : 304 ms P-R-T Axes : 000 -16 059 degrees QTc Int : 440 ms Atrial fibrillation. with rapid ventricular response. Abnormal ECG When compared with ECG of 09-JUN-2018 14:18, Atrial fibrillation. has replaced Sinus rhythm. Vent. rate has increased BY 52 BPM Confirmed by Aleksandar MITTAL, Jeremy Becerra ([id number]) on 07/15/2018 10:57:26 AM
--- NOTE | 2018-07-15 07:44 | EKG Report ---
Test Performed on : 07/15/2018 07:37:56 AM Test Reason : conversion to sinus rhythm Blood Pressure : / mmHG Vent. Rate : 093 BPM Atrial Rate : 093 BPM P-R Int : 146 ms QRS Dur : 088 ms QT Int : 380 ms P-R-T Axes : 057 -30 047 degrees QTc Int : 472 ms Sinus rhythm. with premature atrial complexes. Left axis deviation Abnormal ECG When compared with ECG of 15-JUL-2018 06:10, (Unconfirmed) Sinus rhythm. has replaced Atrial fibrillation. Confirmed by Aleksandar MITTAL, Jeremy Becerra ([id number]) on 07/15/2018 10:57:38 AM
[2018-07-15] MEDS: DULCOLAX PR SCH ×2 (09:56→21:55)
[2018-07-15] MEDS: CLINIMIX E 4.25%-5% SOLUTION 1,000 ML IV SCH (09:56)
[2018-07-15] MEDS: LEVAQUIN 500 MG/D5W 500 MG/100 ML IVPB IV SCH (09:57)
[2018-07-15] MEDS: NORVASC PO SCH (09:57)
--- NOTE | 2018-07-15 10:28 | PROGRESS NOTE ---
DATE: 07/15/2018 SUBJECTIVE: This patient is lying in bed. He is complaining of generalized pain especially his abdomen and right foot. His abdomen is slightly distended. He has dementia. He does not remember if he is passing gas. CT scan done a couple of days ago showed constipation with sigmoid diverticulitis and probably stercoral proctitis, cholelithiasis, right nephrolithiasis and pulmonary fibrosis. As far as I know, this patient is not eating or drinking, so I will put him on gentle IV Clinimix in the meantime. I do believe he is not eating because of his abdominal pain. He has had he has been placed on antibiotics. Gastroenterology department has been consulted. During the night, this patient started having atrial fibrillation with RVR. He was placed on diltiazem, and it looks like he converted back to sinus rhythm. Cardiology Department was consulted as well. OBJECTIVE: Vital Signs: Temperature 98.2 degrees, pulse 93, respiratory rate 17, blood pressure 154/56, and oxygen saturation 95% on room air. HEENT: Head is normocephalic. No trauma. PERRLA. Neck: Supple. No JVD. No masses. Central trachea. Chest: Bilateral crepitus mostly at the bases. Decreased breath sounds at the bases as well. Abdomen: Soft. Mild to moderately distended. Positive bowel sounds. Generalized tenderness to palpation especially at the level of the lower abdomen. No signs of peritoneal irritation. Extremities: 2+ lower extremity edema. No clubbing. No cyanosis. Neurological: The patient is alert. He is oriented to person. He is able to say his date of . He knows he is in the hospital. He does not remember the name of the hospital though or location. He is not oriented to time. He moves all 4 extremities spontaneously, and he is answering some of my questions. LABORATORY: WBC 10, hemoglobin 11.6, hematocrit 35.5, and platelets 236. Sodium 138, potassium 4.2, chloride 103, bicarbonate 22, BUN 27, creatinine 1.1, glucose 166, calcium 7.4, and magnesium 2.5. Troponin negative x2. Albumin 2.1. ASSESSMENT AND PLAN: 1. Abdominal pain/distention probably secondary to sigmoid diverticulitis with probably stercoral proctitis. This patient has been placed on Flagyl and Levaquin. I will continue with the same management. We have placed this patient on a liquid diet, but I do believe this patient is not eating or drinking anything. He refused his morning food, I will put this patient on a gentle IV fluids with Clinimix in the meantime. 2. Constipation. It is reported that this patient had 2 bowel movements. I do believe it is liquid. I asked for a for C. Difficile toxin and antigen just to rule out C. Difficile colitis. 3. Type 2 diabetes. Continue pattern of blood sugar and sliding scale insulin. 4. Hypertension. His blood pressure has been slightly elevated between 130 and 150's. I will put him back on his amlodipine and monitor. 5. Leukocytosis, probably secondary to diverticulitis. He has had a recent Pseudomonas UTI on 07/03. Also, he has a recent transmetatarsal amputation. Leukocyte count normalized today. We will continue with Levaquin and Flagyl. 6. Peripheral arterial disease aware, status post amputation on his right foot, transmetatarsal amputation on 06/27/2018. 7. Dementia aware. I will continue with his donepezil, and I will add his home medication melatonin for this night. I will hold Remeron due to the adverse reaction with levofloxacin with acute QT prolongation. 8. Case discussed briefly with Gastroenterology Department. We will repeat a CT scan of the abdomen and pelvis without contrast today, pending recommendations. cc: Chun Hernandez MD
--- NOTE | 2018-07-15 10:34 | Diag Imaging Result Doc PS360 ---
EXAM: CT ABDOMEN/PELVIS W/O CONTRAST 07/15/2018 HISTORY: Diverticulitis, Abdominal distention TECHNIQUE: This exam was performed using automated exposure control, adjustment of mA or kV according to patient size, and/or use of iterative reconstruction technique. COMMENT: The current examination is compared with the previous study of 07/12/2018. The lung bases are similar in appearance consistent with basilar fibrosis. There are granulomata in the liver and spleen. The adrenal glands pancreas and gallbladder and kidneys are stable in appearance. There is no evidence of bowel obstruction. There is some dilatation of the proximal sigmoid colon. There is diverticulosis in the distal descending and sigmoid colon with apparent diverticulitis in the mid and distal sigmoid. There is infiltration of the paracolic fat. What appeared to be a paracolic abscess on the left on the previous examination is apparently continuous with the lumen of the sigmoid colon on the current examination. Otherwise there is no definite evidence of paracolic abscess. There is a Chavez catheter in the bladder as well as gas in the bladder. There was no gas in the bladder at the time of the previous study and presumably this was introduced with the Chavez catheter. The possibility of a colovesical fistula cannot be entirely excluded however. There is some perirectal edema particularly in the presacral region. This is actually improved slightly since the previous study. IMPRESSION: Sigmoid diverticulitis. There is likely some degree of colonic ileus. Electronically signed by Duane Benites 07/15/2018 10:31 AM
--- NOTE | 2018-07-15 11:49 | EKG Report ---
Test Performed on : 07/15/2018 06:10:05 AM Test Reason : AFIB Blood Pressure : / mmHG Vent. Rate : 110 BPM Atrial Rate : 100 BPM P-R Int : 000 ms QRS Dur : 086 ms QT Int : 350 ms P-R-T Axes : 000 -11 040 degrees QTc Int : 473 ms Atrial fibrillation. with rapid ventricular response. with premature ventricular or aberrantly conduc skyla complexes. Abnormal ECG When compared with ECG of 15-JUL-2018 04:33, (Unconfirmed) No significant change was found Confirmed by Aleksandar MITTAL, Jeremy Becerra ([id number]) on 07/18/2018 9:27:32 AM
[2018-07-15] MEDS: LOPRESSOR PO SCH ×2 (12:35→21:55)
[2018-07-15] MEDS ORDERED: NS 500 ML IV ONE (12:35)
[2018-07-15] MEDS ORDERED: CARDIZEM PO SCH (13:00)
[2018-07-15] MEDS: MYCOSTATIN SUSP PO SCH ×3 (13:43→21:55)
[2018-07-15] MEDS: TYLENOL PO PRN (16:24)
--- NOTE | 2018-07-15 19:43 | CONSULTATION ---
DATE OF CONSULTATION: 07/15/2018 IMPRESSION: 1. Transient atrial fibrillation. The patient spontaneously converted back to sinus rhythm. Suspect atrial fibrillation provoked by stress of noncardiac illness. 2. Patient currently admitted with sigmoid diverticulitis. 3. Apparent intravascular volume depletion in setting of poor oral intake. 4. Suspect oral thrush and esophageal candidiasis. 5. Diabetes mellitus type 2. 6. Hypertension. 7. Peripheral artery disease. The patient is status post right transmetatarsal amputation. RECOMMENDATIONS: 1. Continue to monitor rhythm. 2. Intravenous volume replacement. 3. Initiate Mycostatin swish and swallow for oral candidiasis. 4. Follow up echocardiography. 5. Initiate low-dose metoprolol. 6. Continue antiplatelet therapy. HISTORY OF PRESENT ILLNESS: This 83-year-old white male with past history of diabetes mellitus, hypertension, and peripheral vascular disease, was admitted from [facility] with abdominal discomfort. He has been found to have diverticulitis of the sigmoid colon. He is being treated with parenteral antibiotics. Oral intake has been poor. While monitored, he demonstrated transient atrial fibrillation but has converted back to sinus rhythm. There is no prior history of atrial fibrillation. He does have history of peripheral vascular disease. He is status post right transmetatarsal amputation with revascularization. Following this, he was discharged to [facility]. He started having problems with weakness as well as confusion. Anorexia was evident as well. Urine studies suggested pseudomonas UTI. He has also started to have some abdominal pain. He is having constipation. CT of the abdomen suggested sigmoid diverticulitis and probable proctitis. He is currently on intravenous antibiotics, Flagyl and Levaquin, as well as ClindaMax. PAST MEDICAL HISTORY: 1. Diabetes mellitus type 2. 2. Hypertension. 3. Peripheral artery disease. 4. Carotid artery disease. 5. Status post previous carotid endarterectomy. 6. Status post right transmetatarsal amputation. ALLERGIES: He has no known drug allergies. MEDICATIONS: As listed. SOCIAL HISTORY: He is and normally lives with his and daughter. He does not smoke or use alcohol. He is currently in a [facility] facility for [facility]. FAMILY HISTORY: Negative for premature coronary disease. REVIEW OF SYSTEMS: Pulmonary: Noncontributory. Gastrointestinal: Noteworthy for abdominal pain and anorexia. He has also had some constipation. He has had diminished oral intake. Constitutional: Noncontributory. Remainder of review of systems negative/noncontributory beyond History of Present Illness with 14 total systems reviewed. PHYSICAL EXAMINATION: General: He is an elderly white male in no distress. Vital signs: Blood pressure 154/56, heart rate 93 and regular with ECG monitor currently showing sinus rhythm. HEENT: Extraocular muscles appear intact. Mucous membranes are dry. The pharynx demonstrates what appears to be candidiasis. Neck: Supple. Neck veins are flat. Chest: Clear to auscultation bilaterally. Cardiac Exam: Reveals a regular rate and rhythm without appreciable murmur or gallop. Abdomen: Soft. Bowel sounds audible. Extremities: Without edema. The patient is status post right transmetatarsal amputation. Neurologic Exam: Reveals him to be awake and responsive. However, he appears to be confused. Speech is fluent. Moves all 4 extremities equally well. LABORATORY DATA: Includes a sodium of 138, potassium 4.2, chloride 103, carbon dioxide 22, BUN 27, creatinine 1.1, glucose 166. White blood cell count 10.02, hematocrit 35.5, platelet count 236,000. Magnesium 2.5. Troponin T 0.064. Albumin 2.1. ELECTROCARDIOGRAPHIC FINDINGS: Twelve-lead EKG obtained this morning demonstrates atrial fibrillation with ventricular rate response 126 beats per minute. Repeat ECG shows normal sinus rhythm. Left axis deviation demonstrated. cc: Carlin King MD
[2018-07-15] MEDS: ARICEPT PO SCH (21:55)
[2018-07-15] MEDS: MELATONIN PO SCH (21:55)
[2018-07-16] MEDS: CALMOSEPTINE OINTMENT TOP PRN (00:53)
--- NOTE | 2018-07-16 01:29 | ECHO REPORT ---
ORDER DATE: 07/15/2018 MEASUREMENTS: Septal thickness 1.0, left ventricular internal diameter in diastole 5.4, posterior wall thickness 1.0, left ventricular internal diameter in systole 3.6, aortic root 4.4, left atrium 3.7. SUMMARY: 1. Technically difficult study due to limited acoustic window quality. 2. Aortic valve is trileaflet and opens normally on 2-dimensional images. Peak gradient across aortic valve is less than 10 mmHg. There is very mild aortic regurgitation. Mitral, tricuspid, and pulmonic valves are without evidence of structural abnormality with mild tricuspid regurgitation and mild pulmonic insufficiency. The estimated systolic PA pressure by Doppler is 45 to 50 mmHg, suggesting moderate pulmonary hypertension. Aortic root is mildly enlarged. 3. Normal left ventricular dimensions suggested. Estimated left ventricular ejection fraction appears to be at least 60%. No regional wall motion abnormalities are evident. Left atrium is mildly enlarged. Right atrium and right ventricle are normal in size with preserved right ventricular systolic function. 4. No pericardial effusion. 5. Inferior vena cava not well demonstrated. 6. At beginning of study rhythm was atrial fibrillation with rapid ventricular rate and converted to sinus rhythm during the study. cc: Carlin King MD
[2018-07-16] MEDS: TYLENOL PO PRN ×3 (02:12→21:07)
[2018-07-16] MEDS: FLAGYL 500 MG/NS 500 MG/100 ML IVPB IV SCH ×4 (04:29→21:07)
[2018-07-16] MEDS: CLINIMIX E 4.25%-5% SOLUTION 1,000 ML IV SCH (04:29)
[2018-07-16 05:58] LABS: BASO# 0.01 X1000 (0.0-0.2); BASO% 0.1 % (0.0-0.8); EOS# 0.04 X1000 (0.0-0.7); EOS% 0.4 % (0.0-10.0); HEMATOCRIT 31.3 % (42.0-52.0); HEMOGLOBIN 9.9 g/dL (14.0-18.0); IMM GRAN# 0.12 X1000 (0.0-0.04); IMM GRAN% 1.3 % (0.0-0.5); LYMPH# 0.96 X1000 (1.2-3.4); LYMPH% 10.3 % (20.5-51.1); MCHC 31.6 g/dL (33-37); MCV 91.8 FL (81-99); MONO# 1.76 X1000 (0.11-0.59); MONO% 18.9 % (1.7-9.3); MPV 9.1 FL (7.4-10.4); NEUT# 6.43 X1000 (1.4-6.5); PLT 239 X1000 (130-400); RBC 3.41 XMIL (4.7-6.1); RDW 13.9 % (11.5-14.5); WBC 9.32 X1000 (4.8-10.8)
[2018-07-16 06:29] LABS: LYMPHS 11 % (21-51); MONO 17 % (1-9); SEGS 72 % (42-75)
[2018-07-16 06:43] LABS: AGAP 9; ALB/GLOB RATIO 0.7; ALBUMIN 1.9 g/dL (3.5-5.0); ALKALINE PHOSPHATASE 65 U/L (32-122); BUN 25 mg/dL (8-22); CALCIUM 7.3 mg/dL (8.8-10.2); CHLORIDE 104 mmol/L (98-107); COSMO 279; CREATININE 0.9 mg/dL (0.7-1.2); ESTIMATED GFR > 60; GLUCOSE 215 mg/dL (70-104); GOT 8 U/L (10-34); GPT 7 U/L (10-44); POTASSIUM 4.2 mmol/L (3.5-5.1); SODIUM 134 mmol/L (136-145); TCO2 21 mmol/L (25-35); TOTAL BILIRUBIN 0.43 mg/dL (0.20-1.00); TOTAL PROTEIN 4.8 g/dL (6.3-8.3)
[2018-07-16] MEDS: HUMALOG SUBQ SCH ×4 (06:43→21:07)
[2018-07-16] MEDS: MYCOSTATIN SUSP PO SCH ×4 (09:06→21:07)
[2018-07-16] MEDS: LOPRESSOR PO SCH ×2 (09:06→21:07)
[2018-07-16] MEDS: LEVAQUIN 500 MG/D5W 500 MG/100 ML IVPB IV SCH (09:07)
[2018-07-16] MEDS: NORVASC PO SCH (09:07)
--- NOTE | 2018-07-16 12:50 | GASTROENTEROLOGY CONSULTATION ---
DATE: 07/16/2018 REASON FOR CONSULTATION: Sigmoid diverticulitis. HISTORY OF PRESENT ILLNESS: Janene Palomares is an 83-year-old gentleman with past medical history of hypertension, peripheral artery disease, dementia, non insulin-dependent diabetes, hyperlipidemia, diverticulosis, GERD, PAD prior CEA and recent hospitalization for peripheral vascular disease requiring transmetatarsal amputation of the right foot with revascularization by CTA with runoff on 06/27, who represents abdominal pain in the setting of constipation. Per the daughter and at the bedside, the patient was at the rehab and has not had a bowel movement in the last 3 weeks since his hospitalization. He denies any chest pain or shortness of breath. SOB is at baseline. His bowel movements are once every day or every other day. Since discharge, he has had poor p.o. intake. No fever. No reported dysphagia. He has never had an EGD or colonoscopy in the past. He had about a half a cup of urine throughout the whole day. No rectal bleeding. No melena. PAST MEDICAL HISTORY: As per HPI. PAST SURGICAL HISTORY: He has had a carotid endarterectomy and right transmetatarsal amputation. FAMILY HISTORY: No family history of GI malignancies. SOCIAL HISTORY: Nonsmoker. Prior heavy drinker. No drug use. MEDICATIONS: Reviewed in the chart. ALLERGIES: No known drug allergies. REVIEW OF SYSTEMS: As per HPI, otherwise 12 point review of systems were difficult to obtain. PHYSICAL EXAMINATION: Vital Signs: Temperature 98.5 degrees, heart rate 88, respiratory rate 20, blood pressure 154/61, O2 saturation 98% on room air. General: The patient is lethargic, awake, and responds to commands given. HEENT: Sclerae anicteric. Moist mucous membranes. Neck: No JVD. No lymphadenopathy. Cardiac: Regular rate and rhythm. No murmur. Lungs: Clear to auscultation bilaterally. Abdomen: Distended, tympanic, and minimal. No rebound or guarding. Extremities: No clubbing, cyanosis, or edema. Neurologic: Patient is sleepy, but minimally arousable. He does follow some commands. LABS: White count 10.0 from 12.45 on admission, hemoglobin 11.6, platelets of 236,000, 4% bands yesterday. INR 1.67. Chemistries: Sodium 138, potassium 4.2, chloride 103, bicarbonate 22. BUN 27, creatinine 1.1, glucose 166, calcium 7.65. AST 8, ALT 7, T-bilirubin 0.55, ferritin 785. Troponin 0.053. ProBNP 623. Total protein 5.4, albumin 2.1. UA showed moderate blood, 20 ketones. Protein, bilirubin, leukocyte esterase noted; That improved on subsequent UA. Stool studies for C. difficile and blood cultures x2 are negative today. Urine culture is negative. IMAGING: Chest x-ray overnight shows stable chest. ASSESSMENT AND PLAN: Mr. Janene Palomares is an 83-year-old gentleman, who presents with abdominal pain, found to have sigmoid diverticulitis on CT and mild colon ileus. Initial CT on 07/12 suggests a possible proctitis. He has had some improvement after having a small bowel movement this morning. He is on antibiotics with Flagyl and metronidazole. There was no evidence of obstruction on imaging. Recommend continuing antibiotics and supportive care. Okay to advance patient to a low residue diet. Avoiding nonsteroidal anti- inflammatory drugs. For anemia, trending hemoglobin and hematocrit. Transfuse as needed to maintain hemoglobin between 7 and 8. He has volume depletion and prerenal azotemia; recommend fluid resuscitation as well. For diarrhea, cdiff studies were negative. Will monitor I/O and stool output Thank you for this consult. We will follow with you. Please call with any questions or concerns. RAEANN
[2018-07-16] MEDS: NS 1,000 ML IV SCH (13:39)
--- NOTE | 2018-07-16 15:40 | PROVIDER PROGRESS NOTE ---
Progress Note SUBJECTIVE: No acute overnight events. No N/V/F, CP, SOB. He is tolerating clears. Abdominal pain improving. He has multiple small nonbloody stools yesterday. OBJECTIVE: Last Vital Signs Temp 98.2 F 07/16/18 12:00 Pulse 94 H 07/16/18 12:00 Resp 16 07/16/18 12:00 BP 143/58 07/16/18 12:00 Pulse Ox 98 07/16/18 12:00 Height 6 ft Weight 181 lb 3.2 oz GEN: awake, alert, NAD HEENT: anicteric, MMM, EOMI NECK: supple, no jvd CV: RRR, no murmurs PULM: CTAB, no wheezing ABD: mid distension, tympanic, BS present, soft NT EXT: no cce NEURO: nonfocal : hester with dark urine LABS: 07/16/18 07/16/18 05:24 06:00 WBC 9.32 Hgb 9.9 L Plt Count 239 Sodium 134 L Potassium 4.2 Chloride 104 Carbon Dioxide 21 L BUN 25 H Creatinine 0.9 Glucose 215 H Calcium 7.3 L Total Bilirubin 0.43 AST 8 L ALT 7 L Alkaline Phosphatase 65 Total Protein 4.8 L Albumin 1.9 L A/P: Mr. Janene Palomares is an 83-year-old gentleman who presents with volume depletion and sigmoid diverticulitis that is improving. Cardiology consulted for pAFIB, which spontaneously converted to NSR. Labs notable for anemia, hyponatremia, hyperglycemia, and hypoalbuminemia, and prerenal azotemia. #Sigmoid diverticulitis: continue flagyl, levaquin; advance diet as tolerated to low residue diet #Volume depletion: continue IVFs, trend I/O #Prerenal azotemia: IVFs as above #Hyponatremia: 2/2 to above #Protein calorie malnutrition: on clinimix #Thrush: on nystatin S/S #Anemia: no overt bleeding; trending H/H; patient will need diagnostic colonoscopy +/- EGD 6 weeks after discharge Will follow with you. Please call with questions
[2018-07-16] MEDS: ARICEPT PO SCH (21:07)
[2018-07-16] MEDS: MELATONIN PO SCH (21:07)
[2018-07-17] MEDS: CALMOSEPTINE OINTMENT TOP PRN (00:56)
[2018-07-17] MEDS: CLINIMIX E 4.25%-5% SOLUTION 1,000 ML IV SCH ×3 (00:56→21:47)
[2018-07-17] MEDS: FLAGYL 500 MG/NS 500 MG/100 ML IVPB IV SCH ×4 (02:34→21:47)
--- NOTE | 2018-07-17 04:35 | PROGRESS NOTE ---
DATE: 07/16/2018 SUBJECTIVE: This patient is lying comfortably in bed, his is at the bedside. His abdomen seems to be moderately distended, painful to palpation, mostly at the level of the periumbilical area. He has dementia. He does not remember if he has been passing gas, but he has been reported some bowel movement. I recommended to start physical therapy and continue with the same management for now. OBJECTIVE: Vital Signs: Temperature 98.2 degrees, pulse 94, respiratory rate 16, blood pressure 143/54, oxygen saturation 98% on room air. HEENT: Head normocephalic, atraumatic. PERRLA. Neck: Supple. No JVD. No masses. Central trachea. Chest: Bilateral crepitus mostly at the bases. Decreased breath sounds at the bases as well. Abdomen: Soft, moderately distended. Positive bowel sounds. Generalized tenderness to palpation, especially at the level of the periumbilical area. No signs of peritoneal irritation. Extremities: Trace to 1+ lower extremity edema. No clubbing. No cyanosis. Neurological: The patient is alert, he is oriented to person, he knows his date of . He is oriented to place today. He is not oriented to time, he is able to recognize family members at the bedside. He moves all 4 extremities spontaneously. LABORATORY: WBC 9.3, hemoglobin 9.9, hematocrit 31.3, platelet 239,000. Sodium 134, potassium 4.2, chloride 104, bicarbonate 21, BUN 25, creatinine 0.9. Glucose 215, calcium 7.3, AST 8, ALT 7, alkaline phosphatase 65, albumin 1.9. ASSESSMENT AND PLAN: 1. Abdominal pain/distention, likely secondary to sigmoid diverticulitis and proctitis. This patient has been placed on Flagyl and Levaquin, continue with same management. Continue with his diet. Since he is not eating too much, I will continue with IV Clinimix and a little bit of normal saline. 2. Constipation. It looks like this patient has been having bowel movements, most of them liquid. Clostridium difficile toxin and antigen has been negative. 3. Type 2 diabetes. Continue pattern of blood sugar and sliding scale insulin. 4. Hypertension. His blood pressure has been stable. 5. Leukocytosis, likely secondary to diverticulitis. WBC is normal today. 6. Episode of atrial fibrillation. That converted back to sinus already. Cardiology evaluated this patient. For now, we will continue with same management. 7. Dementia, aware. 8. Anemia. We will monitor. cc: Chun Hernandez MD
[2018-07-17 05:44] LABS: BASO# 0.01 X1000 (0.0-0.2); BASO% 0.1 % (0.0-0.8); EOS# 0.01 X1000 (0.0-0.7); EOS% 0.1 % (0.0-10.0); HEMATOCRIT 31.3 % (42.0-52.0); IMM GRAN# 0.12 X1000 (0.0-0.04); LYMPH# 0.91 X1000 (1.2-3.4); LYMPH% 7.8 % (20.5-51.1); MCH 29.2 PG (27-31); MCHC 31.9 g/dL (33-37); MCV 91.5 FL (81-99); MONO# 2.07 X1000 (0.11-0.59); MONO% 17.8 % (1.7-9.3); MPV 9.1 FL (7.4-10.4); NEUT# 8.54 X1000 (1.4-6.5); NEUT% 73.2 % (42.2-75.2); PLT 218 X1000 (130-400); RBC 3.42 XMIL (4.7-6.1); RDW 14.2 % (11.5-14.5); WBC 11.66 X1000 (4.8-10.8)
[2018-07-17 05:50] LABS: AGAP 10; ALB/GLOB RATIO 0.6; ALBUMIN 1.8 g/dL (3.5-5.0); ALKALINE PHOSPHATASE 53 U/L (32-122); BUN 21 mg/dL (8-22); CALCIUM 7.6 mg/dL (8.8-10.2); CHLORIDE 107 mmol/L (98-107); COSMO 281; CREATININE 0.8 mg/dL (0.7-1.2); ESTIMATED GFR > 60; GLUCOSE 173 mg/dL (70-104); GOT 12 U/L (10-34); GPT 7 U/L (10-44); POTASSIUM 4.3 mmol/L (3.5-5.1); SODIUM 137 mmol/L (136-145); TCO2 20 mmol/L (25-35); TOTAL BILIRUBIN 0.43 mg/dL (0.20-1.00)
[2018-07-17 06:19] LABS: LYMPHS 8 % (21-51); MONO 16 % (1-9); SEGS 76 % (42-75)
[2018-07-17] MEDS: HUMALOG SUBQ SCH ×4 (06:37→21:47)
[2018-07-17] MEDS: LEVAQUIN 500 MG/D5W 500 MG/100 ML IVPB IV SCH (09:36)
[2018-07-17] MEDS: NORVASC PO SCH (09:36)
[2018-07-17] MEDS: MYCOSTATIN SUSP PO SCH ×4 (09:36→21:47)
[2018-07-17] MEDS: LOPRESSOR PO SCH ×2 (09:36→21:47)
--- NOTE | 2018-07-17 09:37 | PROGRESS NOTE ---
DATE: 07/17/2018 SUBJECTIVE: This patient is lying in bed. No family members at the bedside. His abdomen seems to be moderately distended, painful to palpation, mostly at the level of the lower abdomen. He has been having diarrhea, as per the nurse at least 8 times during the night, but he does not remember that. He states that he has been passing gas. I will continue with the Flagyl and levofloxacin. OBJECTIVE: Vital Signs: Temperature 98.5 degrees, pulse 91, respiratory rate 22, blood pressure 140/67, oxygen saturation 96% on room air. HEENT: Head normocephalic, no trauma. PERRLA. Neck: Supple. No JVD. No masses. Central trachea. Chest: Bilateral crepitus, mostly at the bases. Decreased breath sounds at the bases as well. Abdomen: Soft, moderately distended, positive bowel sounds. Generalized tenderness to palpation, especially at the level of the periumbilical area and lower abdomen. No signs of peritoneal irritation. Extremities: Trace to 1+ lower extremity edema. No clubbing. No cyanosis. Neurological: The patient is alert. He is oriented to person. He knows his date of . He knows he is in the hospital. He does not remember the name of this hospital though, and he is oriented to time. He moves all 4 extremities spontaneously. LABORATORY: WBC 11.6, hemoglobin 10, hematocrit 31.3, platelets 218,000. Sodium 137, potassium 4.3, chloride 107, bicarbonate 20, BUN 21, creatinine 0.8, glucose 173, calcium 7.6, AST 12, ALT 7, alkaline phosphatase 53, albumin 1.8. ASSESSMENT AND PLAN: 1. Abdominal pain/large distention, likely secondary to sigmoid diverticulitis and proctitis. This patient has been having diarrhea, at least 8 times during the night. I will continue with IV fluids. I will continue with Flagyl and Levaquin. I will advance a little bit his diet, but since he is not eating too much, I will continue with IV Clinimix and normal saline. 2. Constipation. Actually, it looks like this patient has been having diarrhea. He is not on stool softeners. Continue with same management. 3. Diarrhea as above. 4. Hypertension, stable. 5. Leukocytosis, likely secondary to diverticulitis. 6. Episode of atrial fibrillation, that converted back to sinus already. Cardiology evaluated this patient. For now, we will continue with same management. 7. Dementia, aware. 8. Anemia. We will monitor. cc: Chun Hernandez MD
--- NOTE | 2018-07-17 10:59 | PROVIDER PROGRESS NOTE ---
Progress Note SUBJECTIVE: Patient had 8 liquid stools overnight without blood. No N/V/F, CP, SOB, abdominal pain. Per RN, patient is have skin breakdown on his buttocks. OBJECTIVE: Last Vital Signs Temp 99.4 F 07/17/18 07:49 Pulse 97 H 07/17/18 07:49 Resp 17 07/17/18 07:49 BP 133/64 07/17/18 07:49 Pulse Ox 99 07/17/18 07:49 Height 6 ft Weight 181 lb 3.2 oz GEN: awake, alert, NAD HEENT: anicteric, MMM, EOMI NECK: supple, no jvd CV: RRR, no murmurs PULM: CTAB, no wheezing ABD: distension improved, tympanic, BS present, soft NT EXT: no cce NEURO: nonfocal : hester in place LABS: 07/17/18 07/17/18 04:58 04:58 WBC 11.66 H Hgb 10.0 L Plt Count 218 Sodium 137 Potassium 4.3 Chloride 107 Carbon Dioxide 20 L BUN 21 Creatinine 0.8 Glucose 173 H Total Bilirubin 0.43 AST 12 ALT 7 L Alkaline Phosphatase 53 Total Protein 5.0 L Albumin 1.8 L A/P: Mr. Janene Palomares is an 83-year-old gentleman who presents with volume depletion and sigmoid diverticulitis. Labs notable for anemia, hyponatremia, hyperglycemia, mild leukocytosis, and hypoalbuminemia, and prerenal azotemia. #Sigmoid diverticulitis: continue flagyl, levaquin; started on GI soft diet today #Diarrhea: negative for CDI; patient was previously constipated prior to admission; if continues to have diarrhea tomorrow, consider starting imodium; avoid supplemental fiber setting of acute diverticulitis #Volume depletion: continue IVFs, trend I/O #Prerenal azotemia: IVFs as above #Hyponatremia: 2/2 to above; improved #Severe protein calorie malnutrition: on clinimix #Thrush: on nystatin S/S #Anemia: no overt bleeding; trending H/H; patient will need diagnostic colonoscopy +/- EGD 6 weeks after discharge #DM2: continue SSI Will follow with you. Please call with questions
[2018-07-17] MEDS: TYLENOL PO PRN (12:02)
[2018-07-17] MEDS: NS 1,000 ML IV SCH (13:28)
[2018-07-17] MEDS: ARICEPT PO SCH (21:47)
[2018-07-17] MEDS: MELATONIN PO SCH (21:47)
[2018-07-18] MEDS: FLAGYL 500 MG/NS 500 MG/100 ML IVPB IV SCH ×4 (03:13→21:48)
[2018-07-18 05:40] LABS: BASO# 0.01 X1000 (0.0-0.2); BASO% 0.1 % (0.0-0.8); EOS# 0.02 X1000 (0.0-0.7); EOS% 0.2 % (0.0-10.0); HEMATOCRIT 32.5 % (42.0-52.0); HEMOGLOBIN 10.2 g/dL (14.0-18.0); IMM GRAN# 0.09 X1000 (0.0-0.04); IMM GRAN% 0.9 % (0.0-0.5); LYMPH# 0.85 X1000 (1.2-3.4); LYMPH% 8.7 % (20.5-51.1); MCH 29.3 PG (27-31); MCHC 31.4 g/dL (33-37); MCV 93.4 FL (81-99); MONO# 1.29 X1000 (0.11-0.59); MONO% 13.2 % (1.7-9.3); MPV 9.2 FL (7.4-10.4); NEUT# 7.48 X1000 (1.4-6.5); NEUT% 76.9 % (42.2-75.2); PLT 203 X1000 (130-400); RBC 3.48 XMIL (4.7-6.1); RDW 14.3 % (11.5-14.5); WBC 9.74 X1000 (4.8-10.8)
[2018-07-18 06:03] LABS: AGAP 9; BUN 22 mg/dL (8-22); CALCIUM 7.3 mg/dL (8.8-10.2); CHLORIDE 102 mmol/L (98-107); COSMO 277; CREATININE 0.9 mg/dL (0.7-1.2); ESTIMATED GFR > 60; GLUCOSE 372 mg/dL (70-104); POTASSIUM 5.7 mmol/L (3.5-5.1); SODIUM 129 mmol/L (136-145); TCO2 18 mmol/L (25-35)
[2018-07-18] MEDS: HUMALOG SUBQ SCH ×4 (06:20→21:41)
[2018-07-18] MEDS: NORVASC PO SCH (08:44)
[2018-07-18] MEDS: MYCOSTATIN SUSP PO SCH ×4 (08:44→21:41)
[2018-07-18] MEDS: TYLENOL PO PRN ×3 (08:44→21:44)
[2018-07-18] MEDS: LOPRESSOR PO SCH ×2 (08:44→21:41)
--- NOTE | 2018-07-18 08:55 | PROGRESS NOTE ---
DATE: 07/18/2018 SUBJECTIVE: This patient is lying in bed, family members at the bedside. His abdomen is still distended, painful to palpation and he is still having diarrhea. We placed a rectal tube because he is having some breaks around the perianal area. Also I have consulted Wound Care to take care of his skin, mostly at the level of his back, elbows, and feet. He is confused. He is not recognizing his family members at the bedside, but he is oriented to person and date of . I have requested an evaluation by the palliative care team to see what the family's goal of care is. Also I have requested physical therapy and occupational therapy evaluation. Physical Therapy was already on board. OBJECTIVE: Vital Signs: Temperature 98.3 degrees, pulse 100, respiratory rate 19, blood pressure 147/63, oxygen saturation 97% on room air. HEENT: Head normocephalic. No trauma. PERRLA. Neck: Supple. No JVD. No masses. Central trachea. Chest: Bilateral crepitus, mostly at the bases. Decreased breath sounds at the bases as well. Abdomen: Soft, moderately distended. Positive bowel sounds. Generalized tenderness to palpation, especially at the level of the periumbilical area and lower abdomen. No signs of peritoneal irritation. Extremities: Trace lower extremity edema. No clubbing. No cyanosis. Neurological: This patient is sleepy, but arousable. He is oriented to person and date of . He recognizes family members at the bedside. He is moving all 4 extremities spontaneously. LABORATORY: WBC 9.7, hemoglobin 10.2, hematocrit 32.5, platelets 203,000. I will repeat the BMP STAT to corroborate that this new BMP is good, which showed sodium 129, potassium 5.7, chloride 102, bicarbonate 18, BUN 22, creatinine 0.9, glucose 372, calcium 7.3. Again pending new BMP. ASSESSMENT AND PLAN: 1. Abdominal pain with moderate distention, likely secondary to sigmoid diverticulitis and proctitis. This patient also has been having diarrhea. A rectal tube has been placed. We will continue with IV fluids. We will continue with Flagyl and Levaquin. He is not eating too much. Family members at the bedside. I will continue with Clinimix as well and normal saline. Even though he has been getting treatment, his abdomen is not better. I will get an x-ray in the morning as well as chest x-ray and I will continue to monitor. 2. Diarrhea, as above. 3. Hypertension, stable. 4. Leukocytosis likely secondary to diverticulitis. 5. Episode of atrial fibrillation, converted back to sinus rhythm already. Cardiology evaluated this patient. For now, we will continue with same management. 6. Normocytic anemia, stable. 7. Hyperglycemia. This patient has been having high blood sugar but also he has been on Clinimix. I will get a hemoglobin A1c to rule out diabetes. I do not see any diabetic medications reported on his home medications. Overall, this patient is about the same compared with admission. He has dementia, but he seems to be a little bit more confused today. He is still having abdominal distention, diarrhea even though he has been getting fluids and treatment. Gastroenterology department on board and monitoring this patient on a daily basis. He is not working too good with physical therapy. I have requested an evaluation with Palliative Care to talk to the family about their goals of care. His prognosis is not good due to his multiple comorbidities and current condition and age. We will continue with the same treatment. cc: Chun Hernandez MD
[2018-07-18 09:47] LABS: AGAP 6; BUN 22 mg/dL (8-22); CALCIUM 7.3 mg/dL (8.8-10.2); CHLORIDE 105 mmol/L (98-107); COSMO 276; CREATININE 0.9 mg/dL (0.7-1.2); ESTIMATED GFR > 60; GLUCOSE 248 mg/dL (70-104); POTASSIUM 4.7 mmol/L (3.5-5.1); SODIUM 132 mmol/L (136-145); TCO2 21 mmol/L (25-35)
[2018-07-18] MEDS: LEVAQUIN 500 MG/D5W 500 MG/100 ML IVPB IV SCH (11:40)
[2018-07-18] MEDS: CULTURELLE PO SCH ×2 (11:40→21:40)
--- NOTE | 2018-07-18 13:14 | GASTROENTEROLOGY PROGRESS NOTE ---
DATE: 07/18/2018 SUBJECTIVE: Resting in bed. He had a rough night. He did not sleep well. His family was at bedside. The patient currently wants to asleep now. The patient complains of continuing abdominal discomfort. He has a rectal tube in place and he is having liquid stools. 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 The patient denies any fevers, rigors, or chills today. His last fever episode was on 07/16/2018, T-max was 100.8 degrees, The patient continues to have poor oral intake. He has liquid brown stool in the rectal bag. OBJECTIVE: Vital Signs: Temperature 98.6, pulse of 95, respiratory rate 17, blood pressure 151/64, saturating 97% on room air. Body weight of 181 pounds, 3.2 ounces. BMI 24.6 kg. General: lying in bed, currently sleeping, was able to wake up on commands. HEENT: Positive pallor. No icterus. Neck: Supple. Abdomen: Protuberant, tympanic on percussion. Discomfort in the pelvic region. No rebound or guarding. Extremities: No cyanosis, clubbing. He has a healing wound on the right amputation site and the right foot. He also appears to have a Band-Aid over the left heel. Neurologic: Alert, awake and oriented. LABORATORY DATA: Hemoglobin and hematocrit is 10.2 and 32.5, white count of 9.74, platelet count of 203,000. Sodium 130, potassium 4.7, chloride 105, bicarb 21, anion gap of 6, BUN of 22, creatinine 0.9, glucose of 248, calcium is 7.3, total bilirubin is 0.43, AST 12, ALT 7, alkaline phosphatase 52, total protein is 5, albumin 1.8. Stool studies, stool for C difficile toxin is negative. C difficile antigen is negative. C difficile toxin and antigen repeated on 07/15/2018 also negative. Urine culture negative. Blood culture negative after 48 hours on 07/18/2018. ASSESSMENT: 1. Sigmoid diverticulitis. He will continue on Flagyl and Levaquin. Continue on GI soft diet. 2. Diarrhea. We will recommend removing the rectal tube and evaluate how he does. I will start him on Culturelle twice daily. 3. GERD: Continue Prilosec 20 mg once daily. 4. Anemia. Continue to watch for now and transfuse as needed. 5. Malnutrition. He continues Clinimix at 50 mL/hour. 6. Diabetes. Insulin with sliding scale. 7. The patient will need outpatient esophagogastroduodenoscopy and colonoscopy after discharge for workup of anemia. The above plans were discussed with the patient and family at bedside. All questions answered. Please call us with any questions. cc: MD Jeremy Ceballos MD Omar J. Sosa-Chirinos, MD MTDD
[2018-07-18] MEDS: CLINIMIX E 4.25%-5% SOLUTION 1,000 ML IV SCH (16:46)
[2018-07-18] MEDS: NS 1,000 ML IV SCH (16:53)
[2018-07-18] MEDS: MELATONIN PO SCH (21:40)
[2018-07-18] MEDS: ARICEPT PO SCH (21:41)
[2018-07-19] MEDS: FLAGYL 500 MG/NS 500 MG/100 ML IVPB IV SCH ×4 (03:12→21:14)
[2018-07-19 05:24] LABS: BASO# 0.01 X1000 (0.0-0.2); BASO% 0.1 % (0.0-0.8); EOS# 0.07 X1000 (0.0-0.7); EOS% 0.9 % (0.0-10.0); HEMATOCRIT 30.9 % (42.0-52.0); HEMOGLOBIN 9.8 g/dL (14.0-18.0); IMM GRAN# 0.07 X1000 (0.0-0.04); IMM GRAN% 0.9 % (0.0-0.5); LYMPH# 0.92 X1000 (1.2-3.4); LYMPH% 11.9 % (20.5-51.1); MCH 29.3 PG (27-31); MCHC 31.7 g/dL (33-37); MCV 92.2 FL (81-99); MONO# 0.83 X1000 (0.11-0.59); MONO% 10.7 % (1.7-9.3); MPV 9.2 FL (7.4-10.4); NEUT# 5.83 X1000 (1.4-6.5); NEUT% 75.5 % (42.2-75.2); PLT 203 X1000 (130-400); RBC 3.35 XMIL (4.7-6.1); RDW 14.4 % (11.5-14.5); WBC 7.73 X1000 (4.8-10.8)
[2018-07-19 05:33] LABS: HEMOGLOBIN A1C 6.8 % (4.8-6.0)
[2018-07-19 05:42] LABS: AGAP 10; ALB/GLOB RATIO 0.6; ALBUMIN 1.8 g/dL (3.5-5.0); ALKALINE PHOSPHATASE 53 U/L (32-122); BUN 21 mg/dL (8-22); CALCIUM 7.1 mg/dL (8.8-10.2); CHLORIDE 106 mmol/L (98-107); COSMO 279; CREATININE 0.8 mg/dL (0.7-1.2); ESTIMATED GFR > 60; GLUCOSE 168 mg/dL (70-104); GOT 10 U/L (10-34); GPT 6 U/L (10-44); POTASSIUM 4.4 mmol/L (3.5-5.1); SODIUM 136 mmol/L (136-145); TCO2 20 mmol/L (25-35); TOTAL BILIRUBIN 0.37 mg/dL (0.20-1.00); TOTAL PROTEIN 4.8 g/dL (6.3-8.3)
[2018-07-19] MEDS: TYLENOL PO PRN (05:42)
[2018-07-19] MEDS: HUMALOG SUBQ SCH ×4 (07:14→21:14)
[2018-07-19] MEDS: PRILOSEC PO SCH (07:14)
--- NOTE | 2018-07-19 07:48 | Diag Imaging Result Doc PS360 ---
CHEST-PORTABLE - 07/19/2018 INDICATION: dyspnea COMPARISON: 07/15/2018 FINDINGS: The lungs are normally expanded and clear. Heart size and mediastinal contours are normal. No pneumothorax or pleural effusion. IMPRESSION: Negative exam. Electronically signed by Cr Wong 07/19/2018 7:46 AM
--- NOTE | 2018-07-19 07:49 | Diag Imaging Result Doc PS360 ---
ABDOMEN FLAT/UPRIGHT - 07/19/2018 INDICATION: pain COMPARISON: CT 07/15/2018 FINDINGS: There is a nonobstructive bowel gas pattern. No free air or abdominal calcifications. IMPRESSION: No acute disease. Electronically signed by Cr Wong 07/19/2018 7:46 AM
[2018-07-19] MEDS: MYCOSTATIN SUSP PO SCH ×4 (08:56→21:14)
[2018-07-19] MEDS: NORVASC PO SCH (08:57)
[2018-07-19] MEDS: LOPRESSOR PO SCH ×2 (08:57→21:14)
[2018-07-19] MEDS: CULTURELLE PO SCH ×2 (09:01→21:14)
--- NOTE | 2018-07-19 09:37 | PROVIDER PROGRESS NOTE ---
Progress Note SUBJECTIVE: No acute overnight events. Patient complains of RLQ abdominal pain. No N/V/F, CP, SOB. Rectal tube was removed overnight. Poor PO intake. OBJECTIVE: Last Vital Signs Temp 97.9 F 07/19/18 08:00 Pulse 87 07/19/18 08:00 Resp 22 07/19/18 08:00 BP 136/61 07/19/18 08:00 Pulse Ox 98 07/19/18 08:00 Height 6 ft Weight 181 lb 3.2 oz EN: awake, alert, NAD HEENT: anicteric, MMM, EOMI NECK: supple, no jvd CV: RRR, no murmurs PULM: CTAB, no wheezing ABD: soft, ND BS present, TTP RLQ mild, no rebound or guarding EXT: no cce NEURO: nonfocal : hester in place LABS: 07/17/18 07/17/18 04:58 04:58 WBC 11.66 H Hgb 10.0 L Plt Count 218 Sodium 137 Potassium 4.3 Chloride 107 Carbon Dioxide 20 L BUN 21 Creatinine 0.8 Glucose 173 H Total Bilirubin 0.43 AST 12 ALT 7 L Alkaline Phosphatase 53 Total Protein 5.0 L Albumin 1.8 L A/P: Mr. Janene Palomares is an 83-year-old gentleman who presented with volume depletion and sigmoid diverticulitis. Labs notable for anemia, hyponatremia, hyperglycemia, mild leukocytosis, and hypoalbuminemia, and prerenal azotemia. #Sigmoid diverticulitis: continue flagyl, levaquin; encouraged PO intake, on probiotic #Diarrhea: negative for CDI; improving #Volume depletion: continue IVFs, trend I/O #Prerenal azotemia: IVFs as above #Hyponatremia: 2/2 to above; improved #Severe protein calorie malnutrition: on clinimix #Thrush: on nystatin S/S #Anemia: no overt bleeding; trending H/H; patient will need diagnostic colonoscopy +/- EGD 6 weeks after discharge #DM2: continue SSI Will follow with you. Please call with questions
[2018-07-19] MEDS: LEVAQUIN 500 MG/D5W 500 MG/100 ML IVPB IV SCH (10:05)
--- NOTE | 2018-07-19 14:27 | PROGRESS NOTE ---
DATE: 07/19/2018 SUBJECTIVE: Patient reports less abdominal pain today. is at bedside and reports that he is a little bit better. No other issues noted overnight as per nursing staff. OBJECTIVE: Vital Signs: Temperature 97.8 degrees, heart rate 74, respiratory rate 20, blood pressure 128/54, O2 saturation 100% on room air. General: This is a chronically ill-appearing, 83-year-old male, lying in bed, in no acute distress. Cardiovascular: S1, S2 heard. No murmurs, gallops, or rubs. Regular rate and rhythm. Respiratory: Some rales and crepitus noted in both bases. Patient has also decreased breath sounds globally. The patient is not using any accessory muscles or having work of breathing. Abdomen: Soft, moderately distended. Tenderness to palpation mostly in the periumbilical area and lower abdomen, but there are no signs of peritoneal irritation. Extremities: Mild lower extremity edema. No clubbing or cyanosis. Neurological: The patient is awake,alert, and oriented x3. Moves all 4 extremities. LABORATORY DATA: White cell count 7.73, hemoglobin 9.8, hematocrit 30.9, platelets 203,000 with BMP that is unremarkable except glucose 168. Calcium 7.1. Phosphorus is normal. Albumin is 1.8. ASSESSMENT AND PLAN: 1. Sigmoid diverticulitis. Clinically, this patient is improving slowly. Currently, he is on Levaquin and Flagyl. Not having any more episodes of diarrhea. A rectal tube that was initially placed has been already discontinued. At this point, we are going to continue with the same management. 2. Protein-calorie malnutrition. Albumin on this patient is very low. The patient does not have any good appetite. At this point, we will continue with Clinimix and lipids. 3. Diarrhea. No more episodes of diarrhea since yesterday. 4. Hypertension. Blood pressure is under control. We will continue with the same medications. 5. Episode of atrial fibrillation now back to normal sinus rhythm. Cardiology had been following this patient, but they signed off. 6. Normocytic anemia. Stable. 7. Disposition: At this point, the patient is going to continue with the same medications. cc: Kelvin Smith MD
[2018-07-19] MEDS: CLINIMIX E 4.25%-5% SOLUTION 1,000 ML IV SCH (14:31)
[2018-07-19] MEDS: NS 1,000 ML IV SCH (16:11)
[2018-07-19] MEDS: MELATONIN PO SCH (21:14)
[2018-07-19] MEDS: ARICEPT PO SCH (21:14)
[2018-07-20] MEDS: FLAGYL 500 MG/NS 500 MG/100 ML IVPB IV SCH ×3 (02:44→17:16)
[2018-07-20] MEDS: PRILOSEC PO SCH (06:31)
[2018-07-20] MEDS: HUMALOG SUBQ SCH ×4 (06:32→21:57)
[2018-07-20] MEDS: MYCOSTATIN SUSP PO SCH (08:20)
[2018-07-20] MEDS: NORVASC PO SCH (08:20)
[2018-07-20] MEDS: CULTURELLE PO SCH ×2 (08:21→21:52)
[2018-07-20] MEDS: LOPRESSOR PO SCH ×2 (08:21→21:52)
[2018-07-20] MEDS: CLINIMIX E 4.25%-5% SOLUTION 1,000 ML IV SCH (09:29)
[2018-07-20] MEDS: TYLENOL PO PRN (09:33)
[2018-07-20] MEDS: LEVAQUIN 500 MG/D5W 500 MG/100 ML IVPB IV SCH (11:53)
[2018-07-20] MEDS: NS 1,000 ML IV SCH ×2 (11:58→17:17)
--- NOTE | 2018-07-20 13:09 | PROGRESS NOTE ---
DATE: 07/20/2018 SUBJECTIVE: The patient has dementia. According to , he has a very abundant bowel movement. No other issues noted as per nursing staff overnight. OBJECTIVE: Vital Signs: Temperature 98.1 degrees, heart rate 80, respiratory rate 20, blood pressure 128/52, O2 saturation 98% on room air. General: This is a chronically ill-appearing, 83- year-old, male, lying in bed in no acute distress. Cardiovascular: S1, S2 heard. No murmurs, gallops, or rubs. Regular rate and rhythm. Respiratory: Some rales and crepitus noted in both bases. The patient also has decreased breath sounds globally. The patient is not using any accessory muscles or having work of breathing. Abdomen: Soft, a little bit distended and tender to palpation in the periumbilical area. No signs of peritoneal irritation. Extremities: Mild lower extremity edema. No clubbing or cyanosis noted. Neurological: The patient is awake and alert, but has dementia. Moves all 4 extremities spontaneously. LABORATORY DATA: White cell count 7.73, hemoglobin 9.8, hematocrit 30.9, platelets 203,000. ASSESSMENT AND PLAN: 1. Sigmoid diverticulitis. The patient continues to be on Levaquin and Flagyl. Clinically, this patient is still complaining of some mild pain on and off. He had one episode of diarrhea today. At this point, will continue with the same management. 2. Protein-calorie malnutrition. The patient's albumin is very low. Also, the patient does not have any appetite and is not eating at all considering his advanced dementia. We have talked with the family to decide if they want us to proceed with a percutaneous endoscopic gastrostomy tube or not, or probably he prefers to go home with hospice. In any case, will talk with the family tomorrow to see what they decide about percutaneous endoscopic gastrostomy tube placement. 3. Diarrhea, one more episodes today. 4. Hypertension. Blood pressure is under control. Will continue with the same medication. 5. Episode of atrial fibrillation, resolved. 6. Normocytic anemia, stable. 7. Disposition. I think, at this point, the patient is going to continue with the same medications. 8. Pending response from the family about placing or not a percutaneous endoscopic gastrostomy tube on him. cc: Kelvin Smith MD
[2018-07-20] MEDS: ARICEPT PO SCH (21:52)
[2018-07-20] MEDS: MELATONIN PO SCH (21:52)
--- NOTE | 2018-07-20 23:47 | PROVIDER PROGRESS NOTE ---
Progress Note SUBJECTIVE: No acute overnight events. Patient denies complaints this morning of abdominal pain, rectal bleeding, or diarrhea. He did not eat is food this morning as he said he didn't like it. OBJECTIVE: Last Vital Signs Temp 97.8 F 07/20/18 23:37 Pulse 80 07/20/18 23:37 Resp 28 H 07/20/18 23:37 BP 119/87 07/20/18 23:37 Pulse Ox 100 07/20/18 23:37 Height 6 ft Weight 181 lb 3.2 oz GEN: awake, alert, NAD HEENT: anicteric, MMM, EOMI NECK: supple, no jvd CV: RRR, no murmurs PULM: CTAB, no wheezing ABD: soft, mild distension, BS present, NT, no rebound or guarding EXT: no cce NEURO: nonfocal : hester in place LABS: no labs A/P: Mr. Janene Palomares is an 83-year-old gentleman who presented with volume depletion and sigmoid diverticulitis. Labs notable for anemia, hyponatremia, hyperglycemia, mild leukocytosis, and hypoalbuminemia, and prerenal azotemia. #Sigmoid diverticulitis: continue flagyl, levaquin; encouraged PO intake, on probiotic #Diarrhea: negative for CDI; improving #Volume depletion: continue IVFs, trend I/O #Prerenal azotemia: IVFs as above #Hyponatremia: 2/2 to above; improved #Severe protein calorie malnutrition: on clinimix #Thrush: on nystatin S/S #Anemia: no overt bleeding; trending H/H; patient will need diagnostic colonoscopy +/- EGD 6 weeks after discharge #DM2: continue SSI Will follow with you. Please call with questions
[2018-07-21] MEDS: FLAGYL 500 MG/NS 500 MG/100 ML IVPB IV SCH ×4 (02:02→20:40)
[2018-07-21] MEDS: CLINIMIX E 4.25%-5% SOLUTION 1,000 ML IV SCH ×2 (03:21→05:36)
[2018-07-21] MEDS: ZOFRAN IV PRN (04:03)
[2018-07-21] MEDS: PRILOSEC PO SCH (06:03)
[2018-07-21] MEDS: HUMALOG SUBQ SCH ×4 (06:11→21:11)
[2018-07-21] MEDS: CULTURELLE PO SCH ×2 (08:42→20:42)
[2018-07-21] MEDS: NORVASC PO SCH (08:42)
[2018-07-21] MEDS: LOPRESSOR PO SCH ×2 (08:42→20:42)
[2018-07-21] MEDS: LEVAQUIN 500 MG/D5W 500 MG/100 ML IVPB IV SCH (11:21)
--- NOTE | 2018-07-21 12:42 | PROGRESS NOTE ---
DATE: 07/21/2018 SUBJECTIVE: Patient has dementia. According to , the patient has been okay. OBJECTIVE: Vital Signs: Temperature 99.1 degrees, heart rate 96, respiratory rate 18, blood pressure 160/66, and O2 saturation 99% on room air. General: This is a chronically ill appearing, demented 83-year-old male lying in bed in no acute distress. Cardiovascular: S1, S2 heard. No murmurs, gallops, or rubs. Regular rate and rhythm. Respiratory: There is crepitus noted in both pulmonary bases. Patient is not using any accessory muscles or having work of breathing. Abdomen: Soft. A little bit distended. Mildly tender to palpation in the periumbilical area. There are no signs of peritoneal irritation. Extremities: Mild lower extremity edema. No clubbing or cyanosis noted. Neurological: Patient is awake and alert, but has dementia. He forgets thinks very frequently, and moves 4 extremities spontaneously. LABORATORY DATA: Reviewed. ASSESSMENT AND PLAN: 1. Sigmoid diverticulitis. Patient continues to be on Levaquin and Flagyl. GI is following this patient. One episode of diarrhea yesterday, but today he has not had any bowel movement. We will continue with the same management. 2. Protein-calorie malnutrition. Patient admits very low. The patient also has been very poor appetite. We have talked with the family about the possibility of placing a PEG tube, but according to who is at bedside, the patient's is always picking up things. She reported when she had eye surgery, she removed the patch that was supposed to be there to protect the eye from just recent surgery. She is concerned that if we place a PEG tube he is for sure going to pull it out. At this point, she expressed her desire to be on hospice. We are going to inform social media developer about it. 3. Diarrhea, resolved. 4. Hypertension. Blood pressure is under control. We will continue with the same medication. 5. Episode of atrial fibrillation resolved. 6. Normocytic anemia. Resolved. 7. Disposition. At this point, family has decided to go back home with hospice. We will see what social media developer has to say. cc: Kelvin Smith MD
--- NOTE | 2018-07-21 16:04 | GASTROENTEROLOGY PROGRESS NOTE ---
DATE: 07/21/2018 SUBJECTIVE: Mr. Palomares is resting in bed. He is complaining of pain in the left lower quadrant. He is moving his bowels. Denies any fevers, rigors, or chills. He is eating a little better. He had liquid brown stool this morning. He is having low grade temperature of 99.1. OBJECTIVE: Current vitals: Temperature of 99.1, pulse rate of 96, respiratory rate 18, blood pressure 150/60. Saturating 98% on room air. Body weight of 181 pounds, 3.2 ounces. BMI 24.6 kg/m2. General appearance: Moderately built, well nourished male lying in bed, in no acute distress HEENT: Pale. No icterus. Neck: Neck is supple. Abdomen: Discomfort in the left lower quadrant. No rebound. No guarding. Extremities: No cyanosis, clubbing. Neurologic: Alert, awake, oriented. LABS: His glucose was 159. Last stool studies are negative for C difficile toxin and antigen. X-RAYS: 1. Chest x-ray done on 07/18 was negative. 2. On 07/19, abdominal x-ray showed no acute disease. IMPRESSION AND PLAN: 1. Sigmoid diverticulitis. Continue on Levaquin and Flagyl. Encourage oral intake. Continue Culturelle 1 capsule oral twice daily. Continue Culturelle 1 capsule oral twice daily for 6 weeks. 2. Prerenal azotemia is improving. 3. Protein calorie malnutrition. Clinimix. Encourage oral intake. 4. Anemia. Watch for now. He will need esophagogastroduodenoscopy and colonoscopy in 6 hours of discharge. 5. Type 2 diabetes on sliding scale insulin. 6. Oral thrush. Nystatin swish and swallow. 7. His diarrhea has improved. Today, he had 1 liquid stool which was brown in color. 8. Gastrointestinal prophylaxis with omeprazole 20 mg daily. 9. Continue on Glucerna 1 can three times daily. The above plans discussed with the patient and family at bedside. All questions were answered. Please call us with any further questions. cc: MD Jeremy Ceballos MD
[2018-07-21] MEDS: MELATONIN PO SCH (20:42)
[2018-07-21] MEDS: ARICEPT PO SCH (20:42)
[2018-07-21] MEDS: NS 1,000 ML IV SCH (21:11)
[2018-07-22] MEDS: CLINIMIX E 4.25%-5% SOLUTION 1,000 ML IV SCH ×2 (00:22→20:25)
[2018-07-22] MEDS: FLAGYL 500 MG/NS 500 MG/100 ML IVPB IV SCH ×4 (02:00→20:23)
[2018-07-22] MEDS: TYLENOL PO PRN (05:37)
[2018-07-22] MEDS: PRILOSEC PO SCH (06:01)
[2018-07-22] MEDS: HUMALOG SUBQ SCH ×4 (06:27→21:50)
[2018-07-22] MEDS: NORVASC PO SCH (09:08)
[2018-07-22] MEDS: LOPRESSOR PO SCH ×2 (09:08→20:23)
[2018-07-22] MEDS: CULTURELLE PO SCH ×2 (09:08→20:23)
[2018-07-22] MEDS: NS 1,000 ML IV SCH ×2 (09:11→15:52)
[2018-07-22] MEDS: LEVAQUIN 500 MG/D5W 500 MG/100 ML IVPB IV SCH (12:44)
[2018-07-22] MEDS: ZOFRAN IV PRN (12:44)
--- NOTE | 2018-07-22 13:03 | PROVIDER PROGRESS NOTE ---
Progress Note SUBJECTIVE: No acute overnight events. Patient ate about 25% of breakfast this morning. He has having bowel movements without blood. No abdominal pain, nausea or vomiting. Palliative team consulted given FTT OBJECTIVE: Last Vital Signs Temp 97.3 F L 07/22/18 11:16 Pulse 83 07/22/18 11:16 Resp 27 H 07/22/18 11:16 BP 132/55 07/22/18 11:16 Pulse Ox 97 07/22/18 11:16 Height 6 ft Weight 181 lb 3.2 oz GEN: awake, alert, NAD HEENT: anicteric, MMM, EOMI NECK: supple, no jvd CV: RRR, no murmurs PULM: CTAB, no wheezing ABD: soft, ND BS present, NT, no rebound or guarding EXT: no cce NEURO: nonfocal : hester in place LABS: no labs A/P: Mr. Janene Palomares is an 83-year-old gentleman who presented with volume depletion and sigmoid diverticulitis. Admission labs notable for anemia, hyponatremia, hyperglycemia, mild leukocytosis, and hypoalbuminemia, and prerenal azotemia. #Sigmoid diverticulitis: continue flagyl, levaquin complete 7-10 days of abx; encouraged PO intake, on probiotic #Diarrhea: negative for CDI; resolved #Volume depletion: continue mainenance IVFs, trend I/O #Severe protein calorie malnutrition: on clinimix #Thrush: on nystatin S/S per primary team #Anemia: no overt bleeding; trending H/H; patient will need diagnostic colonoscopy +/- EGD 6 weeks after discharge #DM2: continue SSI Will follow with you. Please call with questions
--- NOTE | 2018-07-22 14:29 | PROGRESS NOTE ---
DATE: 07/22/2018 SUBJECTIVE: The patient has dementia and she reports feeling fine. According to who is at bedside, the patient is doing fine. OBJECTIVE: Vitals: Temperature 97.3 degrees, heart rate 82, respiratory rate 27 and blood pressure 132/55. O2 saturation 97% on room air. General: On examination, this is a chronically ill-appearing 83-year-old male lying in bed in no acute distress. Cardiovascular: S1, S2 heard. No murmurs, gallops, or rubs. Regular rate and rhythm. Respiratory: Minimal crepitus noted in both pulmonary bases. Patient not using any accessory muscles or having work of breathing. Abdomen: Soft. A little bit distended. Nontender to palpation. Bowel sounds present. No organomegaly. Extremities: No clubbing or cyanosis, but lower extremity edema. Neurological: Patient is awake and alert, but has dementia. He forgets things very frequently and moves all four extremities spontaneously. LABORATORY DATA: Reviewed. ASSESSMENT AND PLAN: 1. Sigmoid diverticulitis. Patient continues to be on Levaquin and Flagyl. Actually today is day #8 of both medications. We will continue with the same management. 2. Protein-calorie malnutrition. The patient's appetite is very low. We have talked with the family two days ago, and they are okay to not place any PEG tube and to go home with hospice. At this point, everything has been arranged so whenever we have everything arranged for him, we will let this patient go home with hospice. 3. Hypertension. Blood pressure is under control. We will continue with same management. 4. Normocytic anemia. Resolved. 5. Disposition: As we mentioned before at this point, we are waiting until the hospice company arranges everything for this patient, and then he can be discharged. cc: Kelvin Smith MD
[2018-07-22] MEDS: ARICEPT PO SCH (20:23)
[2018-07-22] MEDS: MELATONIN PO SCH (20:23)
[2018-07-23] MEDS: FLAGYL 500 MG/NS 500 MG/100 ML IVPB IV SCH ×2 (04:57→08:44)
[2018-07-23] MEDS: PRILOSEC PO SCH (06:23)
[2018-07-23] MEDS: HUMALOG SUBQ SCH ×2 (06:23→11:23)
[2018-07-23] MEDS: NORVASC PO SCH (08:44)
[2018-07-23] MEDS: LOPRESSOR PO SCH (08:44)
[2018-07-23] MEDS: CULTURELLE PO SCH (08:44)
[2018-07-23] MEDS: MORPHINE IV PRN ×2 (09:01→12:54)
[2018-07-23] MEDS: LEVAQUIN 500 MG/D5W 500 MG/100 ML IVPB IV SCH (11:23)
[2018-07-23 14:21] VITALS: BP 120/65
--- NOTE | 2018-07-23 20:44 | DISCHARGE SUMMARY ---
ADMISSION DATE: 07/14/2018 DISCHARGE DATE: 07/23/2018 ADMITTING DIAGNOSES: 1. Sigmoid diverticulitis with probable proctitis. Started him on Flagyl and Levaquin. 2. Constipation. 3. Diabetes mellitus type 2. 4. Hypertension. 5. Leukocytosis. DISCHARGE DIAGNOSES: 1. Sigmoid diverticulitis, continued on Levaquin and Flagyl, and today is day 9 of those medications. 2. Protein calorie malnutrition, poor appetite. Discussion with the family. They are okay with the patient not getting a percutaneous endoscopic gastrostomy tube and going home with hospice. 3. Hypertension. 4. Normocytic anemia. CONSULTATIONS: 1. Dr. Naveed Kovacs. 2. Dr. Carlin King. 3. Wound Care. 4. Palliative Care. 5. Hospice Care. 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 SURGERIES/PROCEDURES: None. HOSPITAL COURSE: On 07/14/2018, Mr. Palomares, an 83-year-old male, presented to the emergency room from rehab complaining of abdominal pain. 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 The family at the bedside stated he was complaining of some weakness. He seemed to be a little confused. They did check a urine, which was positive for Pseudomonas, and he received antibiotics during that time. He began having anorexia and slowly stopped eating and barely drank any fluids, and then for 2-3 days prior to presentation to the ER, he had abdominal pain. Then it was also realized he had not had a bowel movement for awhile. At rehab, they sent him for a CT scan of the abdomen and pelvis without contrast, and it showed constipation with sigmoid diverticulitis and probable proctitis. His abdomen was tender to palpation. He did have hypoactive bowel sounds. He was initiated on IV fluids, Flagyl, and Levaquin. Code status was discussed with the family, and he was made a DNR level 1. He did have some transient atrial fibrillation but spontaneously converted back to sinus rhythm. That was why Cardiology was consulted, who also felt it was provoked by stress of noncardiac illness. His recommendations were to monitor the rhythm, do IV fluid replacement, and initiate Mycostatin for swish and swallow for oral candidiasis. He wanted an echo. He started some low-dose metoprolol and continued with antiplatelet therapy. An echocardiogram showed mild aortic regurgitation, pulmonary hypertension with a reading of 45-50 mmHg, and EF of 60%. During the study, he initially started out in atrial fibrillation with RVR and converted to sinus rhythm in the middle of the echocardiogram. GI was consulted due to the diverticulitis, and he also had a mild colon ileus. He did finally have a bowel movement. Physical therapy worked with him. Given the poor nutritional intake, he was started on Clinimix and started having several liquid stools, so they did a C difficile, and that was negative. Due to the multiple bowel movements a day, he did start having some breakdown on his bottom, and so a rectal tube was placed, due to the perianal breakdown. Wound Care was consulted. He became more confused, and so Palliative Care was consulted. He had some deconditioning, and so Occupational and Physical Therapy was following him. He was continued on a GI soft diet and started on Culturelle. The rectal tube was discontinued on the , and that was the day he actually started feeling a little better. By the , he was not having any abdominal pain, and on the it came back. He was still continuing to have bowel movements. Diet improved just a little bit. It was okay for him to be discharged home, and he is going to be discharged home with hospice. DISCHARGE VITAL SIGNS: Temperature 97.9, heart rate 100, respiratory rate 122, blood pressure 140/58, O2 saturation 98% on room air. DISCHARGE LABORATORY DATA: On July 19, white blood cells were 7000, hemoglobin 9, hematocrit 30, platelet count 203. Sodium was 136, potassium 4.4, BUN 21, creatinine 0.8. Glucose was 252 today. Hemoglobin A1c was 6.8. Phosphorus was 3, magnesium 2, bilirubin 0.27. AST 10, ALT 6. Albumin super-low at 1.8. PERTINENT IMAGING: Chest x-ray on admit: Stable chest. Echocardiogram showed pulmonary hypertension that was moderate, with a systolic of 45 to 50 mmHg, and an EF of 60%. Abdominopelvic CT performed on the showed sigmoid diverticulitis and colonic ileus. Abdominal x-ray on the : No acute disease. Chest x-ray on the : Negative exam. EKG on the : Atrial fibrillation with RVR, rate 110. Repeat later on showed sinus rhythm with PVCs. DISCHARGE MEDICATIONS: 1. Melatonin 3 mg p.o. nightly. 2. Remeron 15 mg p.o. nightly. 3. Zofran 4 mg p.o. every 6 hours p.r.n. 4. Senokot 2 tabs p.o. twice daily. 5. Ocate 5 every 4 hours p.r.n. DISCHARGE DIET: Mechanical soft. DISCHARGE ACTIVITY: As tolerated with physical therapy here, and then will be whatever Hospice is able to help him with. WOUND CARE: Apparently there were multiple wounds, left elbow, right elbow, right and left heel, that were stage I. The right foot toe amputation site showed Steri-Strips, and the incision looks good. The left buttock had a stage II. The left elbow was a stage III. So, for the left elbow, it was Mepilex. For the right elbow it was Tegaderm. The heels were elevated. The right foot Steri-Strips stayed in place. The left buttock was clean with a red wound bed. Triad twice daily and as needed for incontinence. DISCHARGE FOLLOWUP: With Dr. Jeremy Huertas. DISCHARGE INSTRUCTIONS: Take medications as prescribed. You will go home with Hospice, who will assist you with any further needs. DISCHARGE DISPOSITION: Home with Hospice. Dictated by BRIE Farnsworth for Kelvin Smith MD Addendum: Patient seen and examined by myself. Agree with BRIE. It reflects my assessment and plan. Patient is being discharged in stable condition to home with hospice who will be following up this patient. cc: BRIE Farnsworth MD [facility]
== END 2018-07-23 14:30 | disposition hospice, home (50) | DRG 391 ==
LOC: SUPCPDRO → ED 08:12 → SUATTDRO 14:49 → EDIPHOLD 14:49 → 3S 22:56 → 3N 07-19 21:32
PROVIDERS: ATTEND Internal Medicine
CPT/HCPCS: 71010; 71045; 74019; 74020; 74176; 80048; 80053; 81001; 82550; 82607; 82728; 82746; 82948; 83036; 83605; 83735; 83880; 84100; 84443; 84484; 85025; 85610; 85730; 87040; 87088; 87324; 87449; 93005; 93010; 93306; 96361; 96365; 96366; 96367; 97110; 97162; 97165; 97530; 99285; A9270; J1815; J1956; J2270; J2405; J7030; J7040; S0030; XXXXX